=== PATIENT | male | born 1930 | race Caucasian/White ===

== ENCOUNTER 2019-04-05 04:28 | Inpatient (IN) | payer MEDICARE, OTHER ==
[2019-04-05 04:46] VITALS: BMI 29.0
--- NOTE | 2019-04-05 05:24 | ED PDOC ---
Arrival/HPI - General Chief Complaint: GI Problem Time Seen by Provider: 04/05/19 04:30 Historian: Patient - History of Present Illness Narrative History of Present Illness (Text): 04/05/19 05:00 Gaston Boss is an 88 year old male, whose past medical history includes hypertension, CAD, CT, and diabetes, who presents to the ED complaining of hematochezia. Patient states he has been experiencing blood in his stools and notes he had a similar issues while in [place]. Patient was advised to stop his Aspirin and Plavix at that time, but started them again and symptoms returned. Patient had a colonoscopy while in [place] and had 1 polyp removed. Patient denies any fever, chills, chest pain, shortness of breath, nausea, vomiting, urinary symptoms, back pain, neck pain, headache, dizziness, or any other complaints. Symptom Onset: Gradual Symptom Course: Unchanged Activities at Onset: Light Context: Home Past Medical History - Provider Review Nursing Documentation Reviewed: Yes - Infectious Disease Hx of Infectious Diseases: None - Tetanus Immunization Tetanus Immunization: Unknown, OTH - Cardiac Hx CT: Yes Hx Hypertension: Yes - Neurological HX Cerebrovascular Accident: Yes (10 yrs ago) - Endocrine/Metabolic Hx Diabetes Mellitus Type 2: Yes - Gastrointestinal Other/Comment: polyps found on colonoscopy - Psychiatric Hx Depression: No Hx Emotional Abuse: No Hx Physical Abuse: No Hx Substance Use: No - Past Surgical History Past Surgical History: No Previous - Surgical History Other/Comment: stent - Anesthesia Hx Anesthesia: Yes Hx Anesthesia Reactions: No Hx Malignant Hyperthermia: No - Suicidal Assessment Feels Threatened In Home Enviroment: No Family/Social History - Physician Review Nursing Documentation Reviewed: Yes Family/Social History: Unknown Family HX Smoking Status: Never Smoked Hx Alcohol Use: No Hx Substance Use: No Hx Substance Use Treatment: No Allergies/Home Meds Allergies/Adverse Reactions: Allergies No Known Allergies Allergy (Verified 02/21/13 04:52) Home Medications: Home Meds Medication Instructions Recorded Confirmed Aspirin [Ecotrin] 81 mg PO DAILY 04/05/19 04/05/19 Atorvastatin [Lipitor] 40 mg PO HS 04/05/19 04/05/19 Clopidogrel [Plavix] 1 tab PO DAILY 04/05/19 04/05/19 Isosorbide Mononitrate [Isosorbide 30 mg PO DAILY 04/05/19 04/05/19 Mononitrate ER] Lisinopril [Zestril] 20 mg PO DAILY 04/05/19 04/05/19 Metformin HCl [Glucophage] 500 mg PO BID 04/05/19 04/05/19 Review of Systems - Physician Review All systems were reviewed & negative as marked: Yes - Review of Systems Constitutional: Normal. absent: Fevers Eyes: Normal ENT: Normal Respiratory: Normal. absent: SOB, Cough Cardiovascular: Normal. absent: Chest Pain Gastrointestinal: Hematochezia. absent: Abdominal Pain, Diarrhea, Nausea, Vomiting Genitourinary Male: Normal. absent: Frequency, Hematuria, Urinary Output Changes Musculoskeletal: Normal Skin: Normal Neurological: Normal Endocrine: Normal Hemo/Lymphatic: Normal Psychiatric: Normal Physical Exam Vital Signs Reviewed: Yes Vital Signs Temp Pulse Resp BP Pulse Ox 04/05/19 04:45 97.4 F L 86 18 134/94 H 100 Temperature: Afebrile Blood Pressure: Normal Pulse: Regular Respiratory Rate: Normal Appearance: Positive for: Well-Appearing, Non-Toxic, Comfortable Pain Distress: None Mental Status: Positive for: Alert and Oriented X 3 - Systems Exam Head: Present: Atraumatic, Normocephalic Pupils: Present: PERRL Extroacular Muscles: Present: EOMI Conjunctiva: Present: Normal Mouth: Present: Moist Mucous Membranes Neck: Present: Normal Range of Motion Respiratory/Chest: Present: Clear to Auscultation, Good Air Exchange. No: Respiratory Distress, Accessory Muscle Use Cardiovascular: Present: Regular Rate and Rhythm, Normal S1, S2. No: Murmurs Abdomen: No: Tenderness, Distention, Peritoneal Signs Back: Present: Normal Inspection Upper Extremity: Present: Normal Inspection. No: Cyanosis, Edema Lower Extremity: Present: Normal Inspection. No: Edema Neurological: Present: GCS=15, CN II-XII Intact, Speech Normal Skin: Present: Warm, Dry, Normal Color. No: Rashes Psychiatric: Present: Alert, Oriented x 3, Normal Insight, Normal Concentration Medical Decision Making ED Course and Treatment: 04/05/19 05:00 Impression: 88 year old male complaining blood in stool. Plan: -- EKG -- Chest X-ray -- Labs, blood type and screen, amylase, lipase, cardiac enzymes -- Reassess and disposition Prior Visits: Notes and results from previous visits were reviewed. Progress Notes: Reviewed EKG, NSR at [address] bpm[address] Non-specific ST/T wave changes. 04/05/19 05:38 Case discussed with medical assisting instructor reservoir engineering consultant, who is aware and agrees with plan. 04/05/19 05:[address] Dash, who is aware and agrees with plan. Accepts pt in to hospitalist service. Pt admitted to Telemetry for lower GI bleed. case d/w dr forte will get bleeding scan - Lab Interpretations I have reviewed the lab results: Yes - RAD Interpretation Radiology Orders: 04/05/19 05:09 CHEST PORTABLE [RAD] Stat - EKG Interpretation Interpreted by ED Physician: Yes Type: 12 lead EKG - Scribe Statement The provider has reviewed the documentation as recorded by the Latha Salgado Provider Scribe Attestation: All medical record entries made by the Scribe were at my direction and personally dictated by me. I have reviewed the chart and agree that the record accurately reflects my personal performance of the history, physical exam, medical decision making, and the department course for this patient. I have also personally directed, reviewed, and agree with the discharge instructions and disposition. Disposition/Present on Arrival - Present on Arrival Any Indicators Present on Arrival: No History of DVT/PE: No History of Uncontrolled Diabetes: No Urinary Catheter: No History of Decub. Ulcer: No History Surgical Site Infection Following: None - Disposition Have Diagnosis and Disposition been Completed?: Yes Diagnosis: Lower gastrointestinal hemorrhage Disposition: HOSPITALIZED Disposition Time: 06:00 Condition: FAIR
[2019-04-05 05:25] LABS: BASO # 0.04 K/mm3 (0.0-2.0); BASO % 0.4 % (0.0-3.0); EOS # 0.4 (0.0-0.7); EOS % 3.6 % (1.5-5.0); HEMOGLOBIN 9.2 g/dL (14.0-18.0); LYMPH # 2.5 (1.2-3.4); LYMPH % 25.1 % (22.0-35.0); MEAN CELL VOLUME 80.1 fl (80.0-105.0); MEAN CORPUSCULAR HEMOGLOBIN 24.5 pg (25.0-35.0); MEAN CORPUSCULAR HGB CONC 30.6 g/dl (31.0-37.0); MEAN PLATELET VOLUME 8.7 fl (7.0-11.0); MONO # 0.8 (0.1-0.6); MONO % 8.1 % (1.0-6.0); RBC 3.76 10^6/uL (3.5-6.1); RED CELL DISTRIBUTION WIDTH 13.2 % (11.5-14.5)
[2019-04-05 05:33] LABS: INR 0.96; PARTIAL THROMBOPLASTIN TIME 36.6 Seconds (26.9-38.3); PROTHROMBIN TIME 10.8 SECONDS (9.4-12.5)
[2019-04-05 05:47] LABS: ALB/GLOB RATIO 1.3 (1.1-1.8); ALBUMIN 4.4 g/dL (3.0-4.8); ALT/SGPT 17 U/L (7-56); AMYLASE 137 U/L (35-125); AST/SGOT 24 U/L (17-59); BLOOD UREA NITROGEN 22 mg/dL (7-21); CALCIUM 9.1 mg/dL (8.4-10.5); GFR NON-AFRICAN AMERICAN 41; LIPASE 408 U/L (23-300)
[2019-04-05 05:52] LABS: TROPONIN I < 0.01 ng/mL
[2019-04-05] MEDS ORDERED: Dextrose 50% SYRINGE Inj (50 ml) IV PRN (07:53)
--- NOTE | 2019-04-05 08:34 | RAD ---
Date of service: 04/05/2019 HISTORY: gi bleed COMPARISON: No prior. TECHNIQUE: 1 view obtained. FINDINGS: LUNGS: No active pulmonary disease. PLEURA: No significant pleural effusion identified, no pneumothorax apparent. CARDIOVASCULAR: Aortic calcification Normal cardiac size. No pulmonary vascular congestion. OSSEOUS STRUCTURES: No significant abnormalities. VISUALIZED UPPER ABDOMEN: Normal. OTHER FINDINGS: None. IMPRESSION: No active disease.
[2019-04-05] MEDS: Sodium Chloride 0.9% 1,000 ML IV SCH ×2 (08:43→22:00)
--- NOTE | 2019-04-05 09:08 | CARD ---
APPROVED REPORT Date of service: 04/05/2019 EKG Measurement Heart [id number] <Conclusion> Normal sinus rhythm Cannot rule out Anteroseptal infarct, age undetermined Abnormal ECG
[2019-04-05] MEDS: Insulin Lispro (humaLOG) LOW Coverage SC SCH ×3 (11:30→21:56)
[2019-04-05 11:42] LABS: HEMOGLOBIN 8.2 g/dL (14.0-18.0); MEAN CELL VOLUME 78.5 fl (80.0-105.0); MEAN CORPUSCULAR HEMOGLOBIN 24.8 pg (25.0-35.0); MEAN CORPUSCULAR HGB CONC 31.5 g/dl (31.0-37.0); MEAN PLATELET VOLUME 8.8 fl (7.0-11.0); RBC 3.31 10^6/uL (3.5-6.1); RED CELL DISTRIBUTION WIDTH 13.1 % (11.5-14.5); WHITE BLOOD COUNT 8.6 10^3/uL (4.5-11.0)
--- NOTE | 2019-04-05 11:50 | CP.PCM.CON ---
<JoseJesus - Last Filed: 04/05/19 17:22> History of Present Illness - History of Present Illness History of Present Illness: Jesus Garcia-Internal Medicine Resident- Consult Note on Behalf of Dr. Luu Subjective: CC: Blood in Stool HPI: Patient is a 88 year old male with a past medical history of colonic polyp, GI bleed, [place], CAD s/p stent placement, hypertension, hyperlipidemia, and diabetes who was admitted for evaluation and treatment of cynthia blood in the stool. GI team was consulted for management/recommendations regarding the aforementioned symptom. Patient seen and examined at bedside. States that he experienced cynthia bright red blood per rectum 3 weeks ago while visiting his daughter in [place]. At that time he was evaluated in an inpatient setting and underwent a colonoscopy which the patient endorses revealed one polyp which he is unsure if removed/biopsied. He was advised to stop taking home aspirin/plavix for 10 days. Patient restarted those medications approximately 2 weeks ago. He experienced bright red blood per rectum this morning. Since being at the hospital he has experienced an additional five bouts of bloody BM. Denies ass ociated abdominal pain, nausea, vomiting, constipation. Further denies fever, chills, dizziness, headache, chest pain, SOB, and urinary symptoms. 12 point ROS negative except as indicated in the HPI Past medical history: colonic polyp, GI bleed, [place], CAD s/p stent placement, hypertension, hyperlipidemia, and diabetes Past surgical history: denies Allergies: NKDA Family history: Father- CAD, [place] Social History: denies ETOH use, tobacco use, and illicit drug use Physical Examination: - Constitutional Appears: No Acute Distress - Head Exam Head Exam: ATRAUMATIC, NORMAL INSPECTION, NORMOCEPHALIC - Eye Exam Eye Exam: EOMI, Normal appearance - ENT Exam ENT Exam: Mucous Membranes Moist - Respiratory Exam Respiratory Exam: CTA bilaterally, absent: Accessory Muscle Use, Chest Wall Tenderness, Rales, Rhonchi, Wheezes, Respiratory Distress - Cardiovascular Exam Cardiovascular Exam: RRR, +S1, +S2 - GI/Abdominal Exam GI & Abdominal Exam: Normal Bowel Sounds, Soft, Tenderness to palpation, absent: Distended, Firm, Guarding, Organomegaly, Rebound, Rigid - Rectal Exam Rectal Exam: Cynthia blood in BM, no fissures, no external hemorrhoids - Extremities Exam Extremities exam: Positive for: normal inspection, Negative for: calf tenderness - Back Exam Back exam: No CVA tenderness bilaterally - Neurological Exam Neurological exam: Alert, Oriented x3 - Psychiatric Exam Psychiatric exam: Normal Affect, Normal Mood - Skin Skin Exam: Dry, Intact, Normal Color, Warm Assessment and Plan: Patient is a 88 year old male with a past medical history of colonic polyp, GI bleed, [place], CAD s/p stent placement, hypertension, hyperlipidemia, and diabetes who was admitted for evaluation and treatment of cynthia blood in the stool. GI hemorrhage- likely diverticular bleed Suspected MARGARET on CKD- need baseline creatinine/BUN Hx of [place] Hx of CAD s/p stent placement Hx of hypertension Hx of hyperlipidemia Hx of diabetes - NPO - protonix 40mg IV q12 - CBC q6h- trend hemoglobin - 2 large bore peripheral IVs - transfuse pRBCs if Hgb<8 - transfuse 1 unit of platelets - attain records from previous colonoscopy for review - nuclear bleeding scan ordered- Abnormal accumulation is seen near the midline of the mid abdomen with peristalsis distally. The bleed is most likely in the descending or sigmoid colon. - hold antiplatelet medications at this time - recommend general surgery consult - icu team consulted- appreciate recommendations Patient seen, case discussed with, and plan approved by attending physician, Dr. Luu. Past Patient History - Infectious Disease Hx of Infectious Diseases: None - Tetanus Immunizations Tetanus Immunization: Unknown, OTH - Past Social History Smoking Status: Never Smoked - CARDIAC Hx Heart Attack: Yes Hx Hypertension: Yes - NEUROLOGICAL HX Cerebrovascular Accident: Yes (10 yrs ago) - ENDOCRINE/METABOLIC Hx Diabetes Mellitus Type 2: Yes - GASTROINTESTINAL Other/Comment: polyps found on colonoscopy - PSYCHIATRIC Hx Depression: No Hx Emotional Abuse: No Hx Physical Abuse: No Hx Substance Use: No - SURGICAL HISTORY Other/Comment: stent - ANESTHESIA Hx Anesthesia: Yes Hx Anesthesia Reactions: No Hx Malignant Hyperthermia: No Meds Allergies/Adverse Reactions: Allergies Allergy/AdvReac Type Severity Reaction Status Date / Time No Known Allergies Allergy Verified 02/21/13 04:52 - Medications Medications: Current Medications Dextrose (Dextrose 50% Inj) 0 ml IV STAT PRN; Protocol PRN Reason: Hypoglycemia Protocol Dextrose (Dextrose 5% In Water 1000 Ml) 1,000 mls @ 0 mls/hr IV .Q0M PRN; Protocol PRN Reason: Hypoglycemia Protocol Sodium Chloride (Sodium Chloride 0.9%) 1,000 mls @ 100 mls/hr IV .Q10H EDNA Last Admin: 04/05/19 08:43 Dose: 100 mls/hr Insulin Human Lispro (Humalog Low) 0 units SC ACHS EDNA; Protocol Pantoprazole Sodium (Protonix Inj) 40 mg IVP DAILY EDNA Results - Vital Signs Recent Vital Signs: Last Vital Signs Temp 97.4 F L 04/05/19 04:45 Pulse 84 04/05/19 07:53 Resp 16 04/05/19 07:53 BP 125/71 04/05/19 07:53 Pulse Ox 98 04/05/19 07:53 - Labs Result Diagrams: 04/05/19 16:00 04/05/19 05:01 Labs: Laboratory Results - last 24 hr 04/05/19 04/05/19 04/05/19 05:01 05:01 05:01 WBC 10.0 RBC 3.76 Hgb 9.2 L Hct 30.1 L MCV 80.1 MCH 24.5 L MCHC 30.6 L RDW 13.2 Plt Count 278 MPV 8.7 Neut % (Auto) 62.8 Lymph % (Auto) 25.1 Sully % (Auto) 8.1 H Eos % (Auto) 3.6 Baso % (Auto) 0.4 Lymph # (Auto) 2.5 Sully # (Auto) 0.8 H Eos # (Auto) 0.4 Baso # (Auto) 0.04 Absolute Neuts (auto) 6.27 PT 10.8 INR 0.96 APTT 36.6 Sodium 128 L Potassium 4.4 Chloride 94 L Carbon Dioxide 20 L Anion Gap 18 BUN 22 H Creatinine 1.6 H Est GFR ( Amer) 50 Est GFR (Non-Af Amer) 41 POC Glucose (mg/dL) Random Glucose 111 H Calcium 9.1 Total Bilirubin 0.5 AST 24 ALT 17 Alkaline Phosphatase 86 Lactate Dehydrogenase 323 L Total Creatine Kinase 134 Troponin I < 0.01 Total Protein 7.7 Albumin 4.4 Globulin 3.4 Albumin/Globulin Ratio 1.3 Amylase 137 H Lipase 408 H Blood Type Blood Type Confirm Antibody Screen Crossmatch BBK History Checked 04/05/19 04/05/19 04/05/19 05:01 05:30 06:12 WBC RBC Hgb Hct MCV MCH MCHC RDW Plt Count MPV Neut % (Auto) Lymph % (Auto) Sully % (Auto) Eos % (Auto) Baso % (Auto) Lymph # (Auto) Sully # (Auto) Eos # (Auto) Baso # (Auto) Absolute Neuts (auto) PT INR APTT Sodium Potassium Chloride Carbon Dioxide Anion Gap BUN Creatinine Est GFR ( Amer) Est GFR (Non-Af Amer) POC Glucose (mg/dL) 137 H Random Glucose Calcium Total Bilirubin AST ALT Alkaline Phosphatase Lactate Dehydrogenase Total Creatine Kinase Troponin I Total Protein Albumin Globulin Albumin/Globulin Ratio Amylase Lipase Blood Type B POSITIVE Blood Type Confirm B POSITIVE Antibody Screen Negative Crossmatch See Detail BBK History Checked No verified bt 04/05/19 11:09 WBC RBC Hgb Hct MCV MCH MCHC RDW Plt Count MPV Neut % (Auto) Lymph % (Auto) Sully % (Auto) Eos % (Auto) Baso % (Auto) Lymph # (Auto) Sully # (Auto) Eos # (Auto) Baso # (Auto) Absolute Neuts (auto) PT INR APTT Sodium Potassium Chloride Carbon Dioxide Anion Gap BUN Creatinine Est GFR ( Amer) Est GFR (Non-Af Amer) POC Glucose (mg/dL) 145 H Random Glucose Calcium Total Bilirubin AST ALT Alkaline Phosphatase Lactate Dehydrogenase Total Creatine Kinase Troponin I Total Protein Albumin Globulin Albumin/Globulin Ratio Amylase Lipase Blood Type Blood Type Confirm Antibody Screen Crossmatch BBK History Checked <Mary Ann Luu V - Last Filed: 04/05/19 17:35> Meds - Medications Medications: Current Medications Atorvastatin Calcium (Lipitor) 40 mg PO HS EDNA Dextrose (Dextrose 50% Inj) 0 ml IV STAT PRN; Protocol PRN Reason: Hypoglycemia Protocol Dextrose (Dextrose 5% In Water 1000 Ml) 1,000 mls @ 0 mls/hr IV .Q0M PRN; Protocol PRN Reason: Hypoglycemia Protocol Sodium Chloride (Sodium Chloride 0.9%) 1,000 mls @ 100 mls/hr IV .Q10H EDNA Last Admin: 04/05/19 08:43 Dose: 100 mls/hr Insulin Human Lispro (Humalog Low) 0 units SC ACHS [facility]; Protocol Last Admin: 04/05/19 16:34 Dose: Not Given Pantoprazole Sodium (Protonix Inj) 40 mg IVP DAILY [facility] Results - Vital Signs Recent Vital Signs: Last Vital Signs Temp 98.6 F 04/05/19 16:39 Pulse 68 04/05/19 16:39 Resp 19 04/05/19 16:39 BP 103/66 04/05/19 16:39 Pulse Ox 98 04/05/19 07:53 - Labs Result Diagrams: 04/05/19 16:00 04/05/19 05:01 Labs: Laboratory Results - last 24 hr 04/05/19 04/05/19 04/05/19 05:01 05:01 05:01 WBC 10.0 RBC 3.76 Hgb 9.2 L Hct 30.1 L MCV 80.1 MCH 24.5 L MCHC 30.6 L RDW 13.2 Plt Count 278 MPV 8.7 Neut % (Auto) 62.8 Lymph % (Auto) 25.1 Sully % (Auto) 8.1 H Eos % (Auto) 3.6 Baso % (Auto) 0.4 Lymph # (Auto) 2.5 Sully # (Auto) 0.8 H Eos # (Auto) 0.4 Baso # (Auto) 0.04 Absolute Neuts (auto) 6.27 PT 10.8 INR 0.96 APTT 36.6 Sodium 128 L Potassium 4.4 Chloride 94 L Carbon Dioxide 20 L Anion Gap 18 BUN 22 H Creatinine 1.6 H Est GFR ( Amer) 50 Est GFR (Non-Af Amer) 41 POC Glucose (mg/dL) Random Glucose 111 H Serum Osmolality Calcium 9.1 Total Bilirubin 0.5 AST 24 ALT 17 Alkaline Phosphatase 86 Lactate Dehydrogenase 323 L Total Creatine Kinase 134 Troponin I < 0.01 Total Protein 7.7 Albumin 4.4 Globulin 3.4 Albumin/Globulin Ratio 1.3 Amylase 137 H Lipase 408 H TSH 3rd Generation Blood Type Blood Type Confirm Antibody Screen Crossmatch BBK History Checked 04/05/19 04/05/19 04/05/19 05:01 05:30 06:12 WBC RBC Hgb Hct MCV MCH MCHC RDW Plt Count MPV Neut % (Auto) Lymph % (Auto) Sully % (Auto) Eos % (Auto) Baso % (Auto) Lymph # (Auto) Sully # (Auto) Eos # (Auto) Baso # (Auto) Absolute Neuts (auto) PT INR APTT Sodium Potassium Chloride Carbon Dioxide Anion Gap BUN Creatinine Est GFR ( Amer) Est GFR (Non-Af Amer) POC Glucose (mg/dL) 137 H Random Glucose Serum Osmolality Calcium Total Bilirubin AST ALT Alkaline Phosphatase Lactate Dehydrogenase Total Creatine Kinase Troponin I Total Protein Albumin Globulin Albumin/Globulin Ratio Amylase Lipase TSH 3rd Generation Blood Type B POSITIVE Blood Type Confirm B POSITIVE Antibody Screen Negative Crossmatch See Detail BBK History Checked No verified bt 04/05/19 04/05/19 04/05/19 11:09 11:35 11:35 WBC 8.6 RBC 3.31 L Hgb 8.2 L Hct 26.0 L MCV 78.5 L MCH 24.8 L MCHC 31.5 RDW 13.1 Plt Count 237 MPV 8.8 Neut % (Auto) Lymph % (Auto) Sully % (Auto) Eos % (Auto) Baso % (Auto) Lymph # (Auto) Sully # (Auto) Eos # (Auto) Baso # (Auto) Absolute Neuts (auto) PT INR APTT Sodium Potassium Chloride Carbon Dioxide Anion Gap BUN Creatinine Est GFR ( Amer) Est GFR (Non-Af Amer) POC Glucose (mg/dL) 145 H Random Glucose Serum Osmolality Calcium Total Bilirubin AST ALT Alkaline Phosphatase Lactate Dehydrogenase Total Creatine Kinase Troponin I Total Protein Albumin Globulin Albumin/Globulin Ratio Amylase Lipase TSH 3rd Generation 1.52 Blood Type Blood Type Confirm Antibody Screen Crossmatch BBK History Checked 04/05/19 04/05/19 04/05/19 11:35 13:05 16:00 WBC 9.1 RBC 3.39 L Hgb 8.4 L Hct 26.6 L MCV 78.5 L MCH 24.8 L MCHC 31.6 RDW 13.5 Plt Count 202 MPV 8.5 Neut % (Auto) Lymph % (Auto) Sully % (Auto) Eos % (Auto) Baso % (Auto) Lymph # (Auto) Sully # (Auto) Eos # (Auto) Baso # (Auto) Absolute Neuts (auto) PT INR APTT Sodium Potassium Chloride Carbon Dioxide Anion Gap BUN Creatinine Est GFR ( Amer) Est GFR (Non-Af Amer) POC Glucose (mg/dL) Random Glucose Serum Osmolality 267 L Calcium Total Bilirubin AST ALT Alkaline Phosphatase Lactate Dehydrogenase Total Creatine Kinase Troponin I < 0.01 Total Protein Albumin Globulin Albumin/Globulin Ratio Amylase Lipase TSH 3rd Generation Blood Type Blood Type Confirm Antibody Screen Crossmatch BBK History Checked Attending/Attestation - Attestation I have personally seen and examined this patient.: Yes I have fully participated in the care of the patient.: Yes I have reviewed all pertinent clinical information: Yes Notes (Text): This is a addendum to the consultation report dictated by the resident. The patient was seen and evaluated along with the resident earlier. Discussed with the patient's family who were at bedside. Patient did have a colonoscopy done in [place] which was reviewed only part of the report available discharge summary was available which was reviewed. Patient was hospitalized at that time with the GI bleeding. Patient did have multiple polyps and diverticulosis. Patient was on aspirin and Plavix at that time. No intervention was done. Managed conservatively. Patient was recommended to restart the antiplatelet therapy after 10 days. Now the patient is admitted with the another episode of GI bleeding. The bleeding scan was reviewed. Patient hemoglobin has been closely monitored received 1 unit of platelet blood transfusion. Since the patient has active bleeding is reasonable to transfuse platelets in view of the dysfunctional platelets due to Plavix. We will continue to closely monitor the hemoglobin hematocrit. Requested also surgical evaluation and ICU evaluation in view of this multiple comorbidities and active bleeding in this 88-year-old patient is a reasonable monitor in the intensive care unit. Discussed with the hospitalist team 04/05/19 17:32
--- NOTE | 2019-04-05 12:19 | CP.PCM.HP ---
<Dave Harrison - Last Filed: 04/05/19 16:32> History of Present Illness - History of Present Illness History of Present Illness: History and Physical for Hospitalist Service - Ana M Harrison PGY2 CC: Bloody bowel movement HPI: 88 year old male with past medical history of HTN, CAD s/p stent, DM2 and HLD who presented to [facility] ED for single episode of bloody diarrhea. Patient indicates that early this AM he had one episode of bright red blood per rectum. Patient indicates that 5/3 he was in [place] visiting family when he had an episode of blood bm which required hospital admission for 3 days. There he had a colonoscopy for which showed polyps. Himself and his family at bedside are unable to provide further details. They indicate the hospital discharged him home after colonoscopy and told him to hold his ASA and plavix for ten days. Patient reports he restarted the ASA, Plavix. Patient indicates the patient has BRPR with some melena, denies black tarry stool, abdominal discomfort, blood thinners. Denies nausea, vomiting, fever, chills, chest pain, shortness of breath. While in ED patient had at least 4 bloody bowel movements with presence of some clotting. PMHx: colon polyp, HTN, CAD s/p angioplasty and possible stents, [place], Type 2 DM, hyperlipidemia PSHx: denies ALL: NKDA SOChx: Denies tobacco, etoh, ID FamHx: no history of cancer Meds: Aspirin 81mg PO daily, Plavix 75mg PO daily, Lisinopril 20 mg daily, Isosorbide mononitrite 30 PO daily, metformin 500mg PO BID, Lipitor 40 mg PO HS PMD:Miguel Angel Chambers Present on Admission - Present on Admission Any Indicators Present on Admission: No Review of Systems - Review of Systems All systems: reviewed and no additional remarkable complaints except (as mentioned in HPI) Past Patient History - Infectious Disease Hx of Infectious Diseases: None - Tetanus Immunizations Tetanus Immunization: Unknown, OTH - Past Social History Smoking Status: Never Smoked - CARDIAC Hx Heart Attack: Yes Hx Hypertension: Yes - NEUROLOGICAL HX Cerebrovascular Accident: Yes (10 yrs ago) - ENDOCRINE/METABOLIC Hx Diabetes Mellitus Type 2: Yes - GASTROINTESTINAL Other/Comment: polyps found on colonoscopy - PSYCHIATRIC Hx Depression: No Hx Emotional Abuse: No Hx Physical Abuse: No Hx Substance Use: No - SURGICAL HISTORY Other/Comment: stent - ANESTHESIA Hx Anesthesia: Yes Hx Anesthesia Reactions: No Hx Malignant Hyperthermia: No Meds Allergies/Adverse Reactions: Allergies Allergy/AdvReac Type Severity Reaction Status Date / Time No Known Allergies Allergy Verified 02/21/13 04:52 Physical Exam - Constitutional Appears: Non-toxic, No Acute Distress - Head Exam Head Exam: ATRAUMATIC, NORMAL INSPECTION, NORMOCEPHALIC - Eye Exam Eye Exam: EOMI, PERRL - ENT Exam ENT Exam: Mucous Membranes Moist - Neck Exam Neck exam: Positive for: Full Rom - Respiratory Exam Respiratory Exam: Clear to Auscultation Bilateral, NORMAL BREATHING PATTERN. absent: Rales, Rhonchi, Wheezes - Cardiovascular Exam Cardiovascular Exam: REGULAR RHYTHM, +S1, +S2 - GI/Abdominal Exam GI & Abdominal Exam: Hyperactive Bowel Sounds, Soft. absent: Distended, Firm, Guarding, Organomegaly, Pulsatile Mass, Rebound, Tenderness - Rectal Exam Rectal Exam: Bloody Stool. absent: Hemorrhoids, Fecal Impaction - Extremities Exam Extremities exam: Positive for: normal inspection. Negative for: calf tenderness, pedal edema, tenderness - Neurological Exam Neurological exam: Alert, CN II-XII Intact, Oriented x3, Reflexes Normal Additional comments: motor and sensory grossly intact - Psychiatric Exam Psychiatric exam: Normal Affect, Normal Mood - Skin Skin Exam: Dry, Intact Results - Vital Signs Recent Vital Signs: Last Vital Signs Temp 97.4 F L 04/05/19 04:45 Pulse 84 04/05/19 07:53 Resp 16 04/05/19 07:53 BP 125/71 04/05/19 07:53 Pulse Ox 98 04/05/19 07:53 - Labs Result Diagrams: 04/05/19 16:00 04/05/19 05:01 Labs: Laboratory Results - last 24 hr 04/05/19 04/05/19 04/05/19 05:01 05:01 05:01 WBC 10.0 RBC 3.76 Hgb 9.2 L Hct 30.1 L MCV 80.1 MCH 24.5 L MCHC 30.6 L RDW 13.2 Plt Count 278 MPV 8.7 Neut % (Auto) 62.8 Lymph % (Auto) 25.1 Gaston % (Auto) 8.1 H Eos % (Auto) 3.6 Baso % (Auto) 0.4 Lymph # (Auto) 2.5 Gaston # (Auto) 0.8 H Eos # (Auto) 0.4 Baso # (Auto) 0.04 Absolute Neuts (auto) 6.27 PT 10.8 INR 0.96 APTT 36.6 Sodium 128 L Potassium 4.4 Chloride 94 L Carbon Dioxide 20 L Anion Gap 18 BUN 22 H Creatinine 1.6 H Est GFR ( Amer) 50 Est GFR (Non-Af Amer) 41 POC Glucose (mg/dL) Random Glucose 111 H Calcium 9.1 Total Bilirubin 0.5 AST 24 ALT 17 Alkaline Phosphatase 86 Lactate Dehydrogenase 323 L Total Creatine Kinase 134 Troponin I < 0.01 Total Protein 7.7 Albumin 4.4 Globulin 3.4 Albumin/Globulin Ratio 1.3 Amylase 137 H Lipase 408 H Blood Type Blood Type Confirm Antibody Screen Crossmatch BBK History Checked 04/05/19 04/05/19 04/05/19 05:01 05:30 06:12 WBC RBC Hgb Hct MCV MCH MCHC RDW Plt Count MPV Neut % (Auto) Lymph % (Auto) Gaston % (Auto) Eos % (Auto) Baso % (Auto) Lymph # (Auto) Gaston # (Auto) Eos # (Auto) Baso # (Auto) Absolute Neuts (auto) PT INR APTT Sodium Potassium Chloride Carbon Dioxide Anion Gap BUN Creatinine Est GFR ( Amer) Est GFR (Non-Af Amer) POC Glucose (mg/dL) 137 H Random Glucose Calcium Total Bilirubin AST ALT Alkaline Phosphatase Lactate Dehydrogenase Total Creatine Kinase Troponin I Total Protein Albumin Globulin Albumin/Globulin Ratio Amylase Lipase Blood Type B POSITIVE Blood Type Confirm B POSITIVE Antibody Screen Negative Crossmatch See Detail BBK History Checked No verified bt 04/05/19 04/05/19 11:09 11:35 WBC 8.6 RBC 3.31 L Hgb 8.2 L Hct 26.0 L MCV 78.5 L MCH 24.8 L MCHC 31.5 RDW 13.1 Plt Count 237 MPV 8.8 Neut % (Auto) Lymph % (Auto) Gaston % (Auto) Eos % (Auto) Baso % (Auto) Lymph # (Auto) Gaston # (Auto) Eos # (Auto) Baso # (Auto) Absolute Neuts (auto) PT INR APTT Sodium Potassium Chloride Carbon Dioxide Anion Gap BUN Creatinine Est GFR ( Amer) Est GFR (Non-Af Amer) POC Glucose (mg/dL) 145 H Random Glucose Calcium Total Bilirubin AST ALT Alkaline Phosphatase Lactate Dehydrogenase Total Creatine Kinase Troponin I Total Protein Albumin Globulin Albumin/Globulin Ratio Amylase Lipase Blood Type Blood Type Confirm Antibody Screen Crossmatch BBK History Checked Assessment & Plan - Assessment and Plan (Free Text) Assessment: 86 year old male with past medical history of colon polyp, HTN, CAD s/p angioplasty with possible stents, [place], Type 2 DM, hyperlipidemia who presented to the ED with complaint of painless hematochezia. Patient noted to be hemodynamically stable and to be admitted to telemetry for monitoring and GI evaluation. Plan: Painless Hematochezia - Etiology: Diverticulosis vs. AVM vs. Polyp vs. 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 Weaver <Fitz Weaver - Last Filed: 04/05/19 17:39> Results - Vital Signs Recent Vital Signs: Last Vital Signs Temp 98.6 F 04/05/19 16:39 Pulse 68 04/05/19 16:39 Resp 19 04/05/19 16:39 BP 103/66 04/05/19 16:39 Pulse Ox 98 04/05/19 07:53 - Labs Result Diagrams: 04/05/19 16:00 04/05/19 05:01 Labs: Laboratory Results - last 24 hr 04/05/19 04/05/19 04/05/19 05:01 05:01 05:01 WBC 10.0 RBC 3.76 Hgb 9.2 L Hct 30.1 L MCV 80.1 MCH 24.5 L MCHC 30.6 L RDW 13.2 Plt Count 278 MPV 8.7 Neut % (Auto) 62.8 Lymph % (Auto) 25.1 Gaston % (Auto) 8.1 H Eos % (Auto) 3.6 Baso % (Auto) 0.4 Lymph # (Auto) 2.5 Gaston # (Auto) 0.8 H Eos # (Auto) 0.4 Baso # (Auto) 0.04 Absolute Neuts (auto) 6.27 PT 10.8 INR 0.96 APTT 36.6 Sodium 128 L Potassium 4.4 Chloride 94 L Carbon Dioxide 20 L Anion Gap 18 BUN 22 H Creatinine 1.6 H Est GFR ( Amer) 50 Est GFR (Non-Af Amer) 41 POC Glucose (mg/dL) Random Glucose 111 H Serum Osmolality Calcium 9.1 Total Bilirubin 0.5 AST 24 ALT 17 Alkaline Phosphatase 86 Lactate Dehydrogenase 323 L Total Creatine Kinase 134 Troponin I < 0.01 Total Protein 7.7 Albumin 4.4 Globulin 3.4 Albumin/Globulin Ratio 1.3 Amylase 137 H Lipase 408 H TSH 3rd Generation Blood Type Blood Type Confirm Antibody Screen Crossmatch BBK History Checked 04/05/19 04/05/19 04/05/19 05:01 05:30 06:12 WBC RBC Hgb Hct MCV MCH MCHC RDW Plt Count MPV Neut % (Auto) Lymph % (Auto) Gaston % (Auto) Eos % (Auto) Baso % (Auto) Lymph # (Auto) Gaston # (Auto) Eos # (Auto) Baso # (Auto) Absolute Neuts (auto) PT INR APTT Sodium Potassium Chloride Carbon Dioxide Anion Gap BUN Creatinine Est GFR ( Amer) Est GFR (Non-Af Amer) POC Glucose (mg/dL) 137 H Random Glucose Serum Osmolality Calcium Total Bilirubin AST ALT Alkaline Phosphatase Lactate Dehydrogenase Total Creatine Kinase Troponin I Total Protein Albumin Globulin Albumin/Globulin Ratio Amylase Lipase TSH 3rd Generation Blood Type B POSITIVE Blood Type Confirm B POSITIVE Antibody Screen Negative Crossmatch See Detail BBK History Checked No verified bt 04/05/19 04/05/19 04/05/19 11:09 11:35 11:35 WBC 8.6 RBC 3.31 L Hgb 8.2 L Hct 26.0 L MCV 78.5 L MCH 24.8 L MCHC 31.5 RDW 13.1 Plt Count 237 MPV 8.8 Neut % (Auto) Lymph % (Auto) Gaston % (Auto) Eos % (Auto) Baso % (Auto) Lymph # (Auto) Gaston # (Auto) Eos # (Auto) Baso # (Auto) Absolute Neuts (auto) PT INR APTT Sodium Potassium Chloride Carbon Dioxide Anion Gap BUN Creatinine Est GFR ( Amer) Est GFR (Non-Af Amer) POC Glucose (mg/dL) 145 H Random Glucose Serum Osmolality Calcium Total Bilirubin AST ALT Alkaline Phosphatase Lactate Dehydrogenase Total Creatine Kinase Troponin I Total Protein Albumin Globulin Albumin/Globulin Ratio Amylase Lipase TSH 3rd Generation 1.52 Blood Type Blood Type Confirm Antibody Screen Crossmatch BBK History Checked 04/05/19 04/05/19 04/05/19 11:35 13:05 16:00 WBC 9.1 RBC 3.39 L Hgb 8.4 L Hct 26.6 L MCV 78.5 L MCH 24.8 L MCHC 31.6 RDW 13.5 Plt Count 202 MPV 8.5 Neut % (Auto) Lymph % (Auto) Gaston % (Auto) Eos % (Auto) Baso % (Auto) Lymph # (Auto) Gaston # (Auto) Eos # (Auto) Baso # (Auto) Absolute Neuts (auto) PT INR APTT Sodium Potassium Chloride Carbon Dioxide Anion Gap BUN Creatinine Est GFR ( Amer) Est GFR (Non-Af Amer) POC Glucose (mg/dL) Random Glucose Serum Osmolality 267 L Calcium Total Bilirubin AST ALT Alkaline Phosphatase Lactate Dehydrogenase Total Creatine Kinase Troponin I < 0.01 Total Protein Albumin Globulin Albumin/Globulin Ratio Amylase Lipase TSH 3rd Generation Blood Type Blood Type Confirm Antibody Screen Crossmatch BBK History Checked Attending/Attestation - Attestation I have personally seen and examined this patient.: Yes I have fully participated in the care of the patient.: Yes I have reviewed all pertinent clinical information: Yes Notes (Text): 04/05/19 17:30 86 year old male with past medical history of CAD s/p possible stents on aspirin and plavix, hypertension, and diabetes who presents with complaint of hematochezia. He reports he had similar episode earlier this month and underwent colonoscopy which showed colon polyp. Will request for prior records from [place] including colonoscopy report. Continue with NPO, IVF, IV protonix. Continue with serial H/H monitoring; transfuse as needed. Bleeding scan was ordered which is positive for possible bleed in sigmoid or descending colon. Will request for ICU, surgery and GI evaluations. Aspirin and plavix are on hold. Agree with iv fluids for mild MARGARET and hyponatremia. Repeat BMP in AM. Fitz Weaver MD Hospitalist.
[2019-04-05] MEDS ORDERED: Pneumococcal 23-Valent Vaccine IM ONE (13:13)
--- NOTE | 2019-04-05 14:20 | NM ---
Date of service: 04/05/2019 PROCEDURE: Nuclear medicine gastrointestinal bleeding scan. HISTORY: lower gi bleed COMPARISON: None available. TECHNIQUE: 4ccof patient blood was withdrawn and mixed with 20.0mCi of technetium ultra tagged. Images of the abdomen and pelvis were obtained in the anterior projection at 1 min intervals over a period of 45 min. FINDINGS: Abnormal accumulation is seen near the midline of the mid abdomen with peristalsis distally. The bleed is most likely in the descending or sigmoid colon. Findings were discussed with the resident physician. Physiologic activity was seen in the heart, liver, spleen and blood vessels. IMPRESSION: Abnormal accumulation is seen near the midline of the mid abdomen with peristalsis distally. The bleed is most likely in the descending or sigmoid colon.
[2019-04-05 16:23] LABS: HEMOGLOBIN 8.4 g/dL (14.0-18.0); MEAN CELL VOLUME 78.5 fl (80.0-105.0); MEAN CORPUSCULAR HEMOGLOBIN 24.8 pg (25.0-35.0); MEAN CORPUSCULAR HGB CONC 31.6 g/dl (31.0-37.0); MEAN PLATELET VOLUME 8.5 fl (7.0-11.0); RBC 3.39 10^6/uL (3.5-6.1); RED CELL DISTRIBUTION WIDTH 13.5 % (11.5-14.5); WHITE BLOOD COUNT 9.1 10^3/uL (4.5-11.0)
--- NOTE | 2019-04-05 16:24 | CP.PCM.CON ---
History of Present Illness - History of Present Illness History of Present Illness: MICU CONSULT NOTE HPI Patient is 88yo male with PMHx of colonic polyp, GIB, CAD s/p stent, HTN, HLD, DM admitted to telemetry lower GIB, BRBPR. Pt receiving 1u PRBC, HH 8.2. Pt currently afebrile, HD stable, comfortable in NAD, although BP has been labile today. States that he experienced cynthia bright red blood per rectum 3 weeks ago while visiting his daughter in [place]. At that time he was evaluated in an inpatient setting and underwent a colonoscopy which the patient endorses revealed one polyp which he is unsure if removed/biopsied. He was advised to stop taking home aspirin/plavix for 10 days. Patient restarted those medications approximately 2 weeks ago. Denies fever, chills, cough, CP, palpitations, CHANDRA, dizziness. 12 point ROS negative except as indicated in the HPI Past medical history: colonic polyp, GI bleed, [place], CAD s/p stent placement, hypertension, hyperlipidemia, and diabetes Past surgical history: denies Allergies: NKDA Family history: Father- CAD, [place] Social History: denies ETOH use, tobacco use, and illicit drug use Review of Systems - Review of Systems Review of Systems: as per HPI Past Patient History - Infectious Disease Hx of Infectious Diseases: None - Tetanus Immunizations Tetanus Immunization: Unknown, OTH - Past Social History Smoking Status: Never Smoked - CARDIAC Hx Heart Attack: Yes Hx Hypertension: Yes - PULMONARY Hx Respiratory Disorders: No - NEUROLOGICAL HX Cerebrovascular Accident: Yes (10 yrs ago) - HEENT Hx HEENT Problems: Yes Hx Cataracts: Yes (left eye sx no cataract r eye) - RENAL Hx Chronic Kidney Disease: No - ENDOCRINE/METABOLIC Hx Diabetes Mellitus Type 2: Yes - HEMATOLOGICAL/ONCOLOGICAL Hx Blood Disorders: Yes Hx Anemia: Yes (H&H today 8.2 26.00/rcvg blood trans) - INTEGUMENTARY Hx Dermatological Problems: Yes Other/Comment: multiple skin discolorations ble and dry 1cm brown scab lle, thick toenails - MUSCULOSKELETAL/RHEUMATOLOGICAL Hx Falls: No - GASTROINTESTINAL Other/Comment: polyps found on colonoscopy - PSYCHIATRIC Hx Depression: No Hx Emotional Abuse: No Hx Physical Abuse: No Hx Substance Use: No - SURGICAL HISTORY Other/Comment: stent - ANESTHESIA Hx Anesthesia: Yes Hx Anesthesia Reactions: No Hx Malignant Hyperthermia: No Meds Allergies/Adverse Reactions: Allergies Allergy/AdvReac Type Severity Reaction Status Date / Time No Known Allergies Allergy Verified 02/21/13 04:52 - Medications Medications: Current Medications Dextrose (Dextrose 50% Inj) 0 ml IV STAT PRN; Protocol PRN Reason: Hypoglycemia Protocol Dextrose (Dextrose 5% In Water 1000 Ml) 1,000 mls @ 0 mls/hr IV .Q0M PRN; Protocol PRN Reason: Hypoglycemia Protocol Sodium Chloride (Sodium Chloride 0.9%) 1,000 mls @ 100 mls/hr IV .Q10H EDNA Last Admin: 04/05/19 08:43 Dose: 100 mls/hr Insulin Human Lispro (Humalog Low) 0 units SC ACHS EDNA; Protocol Last Admin: 04/05/19 11:30 Dose: Not Given Pantoprazole Sodium (Protonix Inj) 40 mg IVP DAILY EDNA Physical Exam - Constitutional Appears: Non-toxic, No Acute Distress - Head Exam Head Exam: NORMAL INSPECTION - Eye Exam Eye Exam: Normal appearance - ENT Exam ENT Exam: Mucous Membranes Moist - Neck Exam Neck exam: Positive for: Full Rom - Respiratory Exam Respiratory Exam: Clear to Auscultation Bilateral, NORMAL BREATHING PATTERN - Cardiovascular Exam Cardiovascular Exam: REGULAR RHYTHM, +S1, +S2 - GI/Abdominal Exam GI & Abdominal Exam: Normal Bowel Sounds, Soft - Extremities Exam Extremities exam: Positive for: normal inspection - Back Exam Back exam: NORMAL INSPECTION - Neurological Exam Neurological exam: Alert, Oriented x3 - Psychiatric Exam Psychiatric exam: Normal Affect - Skin Skin Exam: Normal Color, Warm Results - Vital Signs Recent Vital Signs: Last Vital Signs Temp 97.6 F 04/05/19 15:45 Pulse 66 04/05/19 15:45 Resp 18 04/05/19 15:45 BP 98/58 L 04/05/19 15:45 Pulse Ox 98 04/05/19 07:53 - Labs Result Diagrams: 04/05/19 11:35 04/05/19 05:01 Labs: Laboratory Results - last 24 hr 04/05/19 04/05/19 04/05/19 05:01 05:01 05:01 WBC 10.0 RBC 3.76 Hgb 9.2 L Hct 30.1 L MCV 80.1 MCH 24.5 L MCHC 30.6 L RDW 13.2 Plt Count 278 MPV 8.7 Neut % (Auto) 62.8 Lymph % (Auto) 25.1 Will % (Auto) 8.1 H Eos % (Auto) 3.6 Baso % (Auto) 0.4 Lymph # (Auto) 2.5 Will # (Auto) 0.8 H Eos # (Auto) 0.4 Baso # (Auto) 0.04 Absolute Neuts (auto) 6.27 PT 10.8 INR 0.96 APTT 36.6 Sodium 128 L Potassium 4.4 Chloride 94 L Carbon Dioxide 20 L Anion Gap 18 BUN 22 H Creatinine 1.6 H Est GFR ( Amer) 50 Est GFR (Non-Af Amer) 41 POC Glucose (mg/dL) Random Glucose 111 H Serum Osmolality Calcium 9.1 Total Bilirubin 0.5 AST 24 ALT 17 Alkaline Phosphatase 86 Lactate Dehydrogenase 323 L Total Creatine Kinase 134 Troponin I < 0.01 Total Protein 7.7 Albumin 4.4 Globulin 3.4 Albumin/Globulin Ratio 1.3 Amylase 137 H Lipase 408 H TSH 3rd Generation Blood Type Blood Type Confirm Antibody Screen Crossmatch BBK History Checked 04/05/19 04/05/19 04/05/19 05:01 05:30 06:12 WBC RBC Hgb Hct MCV MCH MCHC RDW Plt Count MPV Neut % (Auto) Lymph % (Auto) Will % (Auto) Eos % (Auto) Baso % (Auto) Lymph # (Auto) Will # (Auto) Eos # (Auto) Baso # (Auto) Absolute Neuts (auto) PT INR APTT Sodium Potassium Chloride Carbon Dioxide Anion Gap BUN Creatinine Est GFR ( Amer) Est GFR (Non-Af Amer) POC Glucose (mg/dL) 137 H Random Glucose Serum Osmolality Calcium Total Bilirubin AST ALT Alkaline Phosphatase Lactate Dehydrogenase Total Creatine Kinase Troponin I Total Protein Albumin Globulin Albumin/Globulin Ratio Amylase Lipase TSH 3rd Generation Blood Type B POSITIVE Blood Type Confirm B POSITIVE Antibody Screen Negative Crossmatch See Detail BBK History Checked No verified bt 04/05/19 04/05/19 04/05/19 11:09 11:35 11:35 WBC 8.6 RBC 3.31 L Hgb 8.2 L Hct 26.0 L MCV 78.5 L MCH 24.8 L MCHC 31.5 RDW 13.1 Plt Count 237 MPV 8.8 Neut % (Auto) Lymph % (Auto) Will % (Auto) Eos % (Auto) Baso % (Auto) Lymph # (Auto) Will # (Auto) Eos # (Auto) Baso # (Auto) Absolute Neuts (auto) PT INR APTT Sodium Potassium Chloride Carbon Dioxide Anion Gap BUN Creatinine Est GFR ( Amer) Est GFR (Non-Af Amer) POC Glucose (mg/dL) 145 H Random Glucose Serum Osmolality Calcium Total Bilirubin AST ALT Alkaline Phosphatase Lactate Dehydrogenase Total Creatine Kinase Troponin I Total Protein Albumin Globulin Albumin/Globulin Ratio Amylase Lipase TSH 3rd Generation 1.52 Blood Type Blood Type Confirm Antibody Screen Crossmatch BBK History Checked 04/05/19 04/05/19 11:35 13:05 WBC RBC Hgb Hct MCV MCH MCHC RDW Plt Count MPV Neut % (Auto) Lymph % (Auto) Will % (Auto) Eos % (Auto) Baso % (Auto) Lymph # (Auto) Will # (Auto) Eos # (Auto) Baso # (Auto) Absolute Neuts (auto) PT INR APTT Sodium Potassium Chloride Carbon Dioxide Anion Gap BUN Creatinine Est GFR ( Amer) Est GFR (Non-Af Amer) POC Glucose (mg/dL) Random Glucose Serum Osmolality 267 L Calcium Total Bilirubin AST ALT Alkaline Phosphatase Lactate Dehydrogenase Total Creatine Kinase Troponin I < 0.01 Total Protein Albumin Globulin Albumin/Globulin Ratio Amylase Lipase TSH 3rd Generation Blood Type Blood Type Confirm Antibody Screen Crossmatch BBK History Checked Assessment & Plan - Assessment and Plan (Free Text) Assessment: 88yo male with lower GIB Lower GIB CAD HTN Colonic Polyp Anemia Recommend: - supp o2 as needed, duonebs PRN - NO ID issues - would give 1u PRBC, 1u FFP, 1u PLatelets - maintain 2 large bore PIVs - NPO - IVF - GI follow up - Surgical consult - GI ppx, PPI - DVT ppx, SCDs - Transfer to MICU
--- NOTE | 2019-04-05 17:12 | CP.PCM.CON ---
History of Present Illness - History of Present Illness History of Present Illness: General Surgery Consult Re: Lower GI bleed HPI: 88M complaining of bloody diarrhea. The diarrhea began this morning at 3 AM with BRBPR and no associated pain. Since admission he has still been having hematochezia. He was in [place] several weeks ago and had similar symptoms. At that time he was hospitalized for 3 days and had a colonoscopy which his family said showed diverticulitis with polyps. He was told to hold his ASA and P lavix, and he reports that his symptoms stopped. He has never had this in the past. Denies fever, fatigue, headache, blurry vision, chest pain, palpitations, nausea, vomiting, constipation, melena, abdominal pain, rectal pain. 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 No EtOH or drug use All: NKDA Meds: See MAR, includes ASA and Plavix Review of Systems - Review of Systems All systems: reviewed and no additional remarkable complaints except (As per HPI) Past Patient History - Infectious Disease Hx of Infectious Diseases: None - Tetanus Immunizations Tetanus Immunization: Unknown, OTH - Past Social History Smoking Status: Never Smoked - CARDIAC Hx Heart Attack: Yes Hx Hypertension: Yes - PULMONARY Hx Respiratory Disorders: No - NEUROLOGICAL HX Cerebrovascular Accident: Yes (10 yrs ago) - HEENT Hx HEENT Problems: Yes Hx Cataracts: Yes (left eye sx no cataract r eye) - RENAL Hx Chronic Kidney Disease: No - ENDOCRINE/METABOLIC Hx Diabetes Mellitus Type 2: Yes - HEMATOLOGICAL/ONCOLOGICAL Hx Blood Disorders: Yes Hx Anemia: Yes (H&H today 8.2 26.00/rcvg blood trans) - INTEGUMENTARY Hx Dermatological Problems: Yes Other/Comment: multiple skin discolorations ble and dry 1cm brown scab lle, thick toenails - MUSCULOSKELETAL/RHEUMATOLOGICAL Hx Falls: No - GASTROINTESTINAL Other/Comment: polyps found on colonoscopy - PSYCHIATRIC Hx Depression: No Hx Emotional Abuse: No Hx Physical Abuse: No Hx Substance Use: No - SURGICAL HISTORY Other/Comment: stent - ANESTHESIA Hx Anesthesia: Yes Hx Anesthesia Reactions: No Hx Malignant Hyperthermia: No Meds Allergies/Adverse Reactions: Allergies Allergy/AdvReac Type Severity Reaction Status Date / Time No Known Allergies Allergy Verified 02/21/13 04:52 - Medications Medications: Current Medications Atorvastatin Calcium (Lipitor) 40 mg PO HS EDNA Dextrose (Dextrose 50% Inj) 0 ml IV STAT PRN; Protocol PRN Reason: Hypoglycemia Protocol Dextrose (Dextrose 5% In Water 1000 Ml) 1,000 mls @ 0 mls/hr IV .Q0M PRN; Protocol PRN Reason: Hypoglycemia Protocol Sodium Chloride (Sodium Chloride 0.9%) 1,000 mls @ 100 mls/hr IV .Q10H EDNA Last Admin: 04/05/19 08:43 Dose: 100 mls/hr Insulin Human Lispro (Humalog Low) 0 units SC ACHS EDNA; Protocol Last Admin: 04/05/19 16:34 Dose: Not Given Pantoprazole Sodium (Protonix Inj) 40 mg IVP DAILY [facility] Physical Exam - Constitutional Appears: Non-toxic, No Acute Distress - Head Exam Head Exam: ATRAUMATIC, NORMOCEPHALIC - Eye Exam Eye Exam: EOMI. absent: Scleral icterus - ENT Exam ENT Exam: Mucous Membranes Moist Additional comments: trachea midline - Neck Exam Neck exam: Positive for: Full Rom. Negative for: Lymphadenopathy - Respiratory Exam Respiratory Exam: NORMAL BREATHING PATTERN. absent: Accessory Muscle Use, Respiratory Distress - Cardiovascular Exam Cardiovascular Exam: REGULAR RHYTHM. absent: Tachycardia - GI/Abdominal Exam GI & Abdominal Exam: Soft. absent: Distended, Firm, Guarding, Rebound, Rigid, Tenderness - Rectal Exam Rectal Exam: absent: Hemorrhoids, Fecal Impaction Additional comments: normal tone - Extremities Exam Extremities exam: Positive for: normal capillary refill, normal inspection. Negative for: calf tenderness, pedal edema - Back Exam Back exam: absent: CVA tenderness (L), CVA tenderness (R) - Neurological Exam Neurological exam: Alert, Oriented x3 - Psychiatric Exam Psychiatric exam: Normal Affect, Normal Mood - Skin Skin Exam: Dry, Intact, Warm Results - Vital Signs Recent Vital Signs: Last Vital Signs Temp 98.6 F 04/05/19 16:39 Pulse 68 04/05/19 16:39 Resp 19 04/05/19 16:39 BP 103/66 04/05/19 16:39 Pulse Ox 98 04/05/19 07:53 - Labs Result Diagrams: 04/05/19 16:00 04/05/19 05:01 Labs: Laboratory Results - last 24 hr 0504/05/19 04/05/19 05:01 05:01 05:01 WBC 10.0 RBC 3.76 Hgb 9.2 L Hct 30.1 L MCV 80.1 MCH 24.5 L MCHC 30.6 L RDW 13.2 Plt Count 278 MPV 8.7 Neut % (Auto) 62.8 Lymph % (Auto) 25.1 Sharp % (Auto) 8.1 H Eos % (Auto) 3.6 Baso % (Auto) 0.4 Lymph # (Auto) 2.5 Sharp # (Auto) 0.8 H Eos # (Auto) 0.4 Baso # (Auto) 0.04 Absolute Neuts (auto) 6.27 PT 10.8 INR 0.96 APTT 36.6 Sodium 128 L Potassium 4.4 Chloride 94 L Carbon Dioxide 20 L Anion Gap 18 BUN 22 H Creatinine 1.6 H Est GFR ( Amer) 50 Est GFR (Non-Af Amer) 41 POC Glucose (mg/dL) Random Glucose 111 H Serum Osmolality Calcium 9.1 Total Bilirubin 0.5 AST 24 ALT 17 Alkaline Phosphatase 86 Lactate Dehydrogenase 323 L Total Creatine Kinase 134 Troponin I < 0.01 Total Protein 7.7 Albumin 4.4 Globulin 3.4 Albumin/Globulin Ratio 1.3 Amylase 137 H Lipase 408 H TSH 3rd Generation Blood Type Blood Type Confirm Antibody Screen Crossmatch BBK History Checked 04/05/19 04/05/19 04/05/19 05:01 05:30 06:12 WBC RBC Hgb Hct MCV MCH MCHC RDW Plt Count MPV Neut % (Auto) Lymph % (Auto) Sharp % (Auto) Eos % (Auto) Baso % (Auto) Lymph # (Auto) Sharp # (Auto) Eos # (Auto) Baso # (Auto) Absolute Neuts (auto) PT INR APTT Sodium Potassium Chloride Carbon Dioxide Anion Gap BUN Creatinine Est GFR ( Amer) Est GFR (Non-Af Amer) POC Glucose (mg/dL) 137 H Random Glucose Serum Osmolality Calcium Total Bilirubin AST ALT Alkaline Phosphatase Lactate Dehydrogenase Total Creatine Kinase Troponin I Total Protein Albumin Globulin Albumin/Globulin Ratio Amylase Lipase TSH 3rd Generation Blood Type B POSITIVE Blood Type Confirm B POSITIVE Antibody Screen Negative Crossmatch See Detail BBK History Checked No verified bt 04/05/19 04/05/19 04/05/19 11:09 11:35 11:35 WBC 8.6 RBC 3.31 L Hgb 8.2 L Hct 26.0 L MCV 78.5 L MCH 24.8 L MCHC 31.5 RDW 13.1 Plt Count 237 MPV 8.8 Neut % (Auto) Lymph % (Auto) Sharp % (Auto) Eos % (Auto) Baso % (Auto) Lymph # (Auto) Sharp # (Auto) Eos # (Auto) Baso # (Auto) Absolute Neuts (auto) PT INR APTT Sodium Potassium Chloride Carbon Dioxide Anion Gap BUN Creatinine Est GFR ( Amer) Est GFR (Non-Af Amer) POC Glucose (mg/dL) 145 H Random Glucose Serum Osmolality Calcium Total Bilirubin AST ALT Alkaline Phosphatase Lactate Dehydrogenase Total Creatine Kinase Troponin I Total Protein Albumin Globulin Albumin/Globulin Ratio Amylase Lipase TSH 3rd Generation 1.52 Blood Type Blood Type Confirm Antibody Screen Crossmatch BBK History Checked 04/05/19 04/05/19 04/05/19 11:35 13:05 16:00 WBC 9.1 RBC 3.39 L Hgb 8.4 L Hct 26.6 L MCV 78.5 L MCH 24.8 L MCHC 31.6 RDW 13.5 Plt Count 202 MPV 8.5 Neut % (Auto) Lymph % (Auto) Sharp % (Auto) Eos % (Auto) Baso % (Auto) Lymph # (Auto) Sharp # (Auto) Eos # (Auto) Baso # (Auto) Absolute Neuts (auto) PT INR APTT Sodium Potassium Chloride Carbon Dioxide Anion Gap BUN Creatinine Est GFR ( Amer) Est GFR (Non-Af Amer) POC Glucose (mg/dL) Random Glucose Serum Osmolality 267 L Calcium Total Bilirubin AST ALT Alkaline Phosphatase Lactate Dehydrogenase Total Creatine Kinase Troponin I < 0.01 Total Protein Albumin Globulin Albumin/Globulin Ratio Amylase Lipase TSH 3rd Generation Blood Type Blood Type Confirm Antibody Screen Crossmatch BBK History Checked - Imaging and Cardiology Bleeding scan Status: Image reviewed by me, Report reviewed by me Assessment & Plan - Assessment and Plan (Free Text) Assessment: 88M with Lower GI bleed Plan: Continue to monitor hemoglobin monitor bowel movements for further bleeding transfuse PRN follow up GI plan and colonoscopy tomorrow no immediate surgery required D/W Dr. Gerber Isaacs PGY4
[2019-04-05 20:45] LABS: HEMOGLOBIN 9.3 g/dL (14.0-18.0); MEAN CELL VOLUME 79.7 fl (80.0-105.0); MEAN CORPUSCULAR HEMOGLOBIN 25.8 pg (25.0-35.0); MEAN CORPUSCULAR HGB CONC 32.4 g/dl (31.0-37.0); MEAN PLATELET VOLUME 8.6 fl (7.0-11.0); RBC 3.6 10^6/uL (3.5-6.1); RED CELL DISTRIBUTION WIDTH 14.6 % (11.5-14.5); WHITE BLOOD COUNT 8.6 10^3/uL (4.5-11.0)
[2019-04-06 01:08] LABS: HEMOGLOBIN 8.4 g/dL (14.0-18.0)
[2019-04-06 06:48] LABS: HEMOGLOBIN 7.9 g/dL (14.0-18.0); MEAN CELL VOLUME 79.7 fl (80.0-105.0); MEAN CORPUSCULAR HEMOGLOBIN 25.9 pg (25.0-35.0); MEAN CORPUSCULAR HGB CONC 32.5 g/dl (31.0-37.0); MEAN PLATELET VOLUME 8.6 fl (7.0-11.0); RBC 3.05 10^6/uL (3.5-6.1); RED CELL DISTRIBUTION WIDTH 14.7 % (11.5-14.5); WHITE BLOOD COUNT 8.8 10^3/uL (4.5-11.0)
[2019-04-06 07:06] LABS: CALCIUM 8.6 mg/dL (8.4-10.5)
[2019-04-06 07:17] LABS: URINE BILIRUBIN NEGATIVE (NEGATIVE); URINE BLOOD NEGATIVE (NEGATIVE); URINE GLUCOSE (UA) NEGATIVE (NEGATIVE); URINE LEUKOCYTE ESTERASE NEGATIVE Leu/uL (NEGATIVE); URINE PROTEIN NEGATIVE mg/dL (<30 mg/dL); URINE UROBILINOGEN 0.2 E.U./dL (<1 E.U./dL)
[2019-04-06 07:25] LABS: URINE APPEARANCE CLEAR (CLEAR); URINE COLOR YELLOW (YELLOW)
--- NOTE | 2019-04-06 09:11 | CP.PCM.PN ---
Subjective - Date & Time of Evaluation Date of Evaluation: 04/06/19 Time of Evaluation: 07:30 - Subjective Subjective: General Surgery Dr. Mayes Pt seen and examined @bedside. No acute events overnight. Per pt & nurse, no new melena/hematochezia. Pt has no complaints. denies F/C, CP, SOB, N/V, abd pain. NPO. Objective - Vital Signs/Intake and Output Vital Signs (last 24 hours): Temp Pulse Resp BP Pulse Ox 98.6 F 68 17 141/97 H 100 04/06/19 06:00 04/06/19 06:00 04/05/19 20:10 04/05/19 20:01 04/05/19 19:50 Intake and Output: 04/06/19 04/06/19 06:59 18:59 Intake Total 325 2131 Balance 325 2131 - Medications Medications: Current Medications Atorvastatin Calcium (Lipitor) 40 mg PO HS EDNA Last Admin: 04/05/19 22:00 Dose: 40 mg Dextrose (Dextrose 50% Inj) 0 ml IV STAT PRN; Protocol PRN Reason: Hypoglycemia Protocol Dextrose (Dextrose 5% In Water 1000 Ml) 1,000 mls @ 0 mls/hr IV .Q0M PRN; Protocol PRN Reason: Hypoglycemia Protocol Sodium Chloride (Sodium Chloride 0.9%) 1,000 mls @ 100 mls/hr IV .Q10H EDNA Last Admin: 04/05/19 22:00 Dose: 100 mls/hr Insulin Human Lispro (Humalog Low) 0 units SC ACHS EDNA; Protocol Last Admin: 04/05/19 21:56 Dose: Not Given Pantoprazole Sodium (Protonix Inj) 40 mg IVP DAILY EDNA - Labs Labs: 04/06/19 06:20 04/06/19 06:20 PT 10.8 SECONDS (9.4-12.5) 04/05/19 05:01 INR 0.96 04/05/19 05:01 APTT 36.6 Seconds (26.9-38.3) 04/05/19 05:01 - Constitutional Appears: Non-toxic, No Acute Distress - Head Exam Head Exam: NORMAL INSPECTION - Eye Exam Eye Exam: Normal appearance - ENT Exam ENT Exam: Mucous Membranes Moist - Respiratory Exam Respiratory Exam: NORMAL BREATHING PATTERN. absent: Accessory Muscle Use, Respiratory Distress - Cardiovascular Exam Cardiovascular Exam: REGULAR RHYTHM. absent: Bradycardia, Tachycardia - GI/Abdominal Exam GI & Abdominal Exam: Soft. absent: Distended, Firm, Guarding, Rigid, Tenderness, Rebound - Extremities Exam Extremities Exam: Normal Inspection - Neurological Exam Neurological Exam: Alert, Awake, Oriented x3 - Psychiatric Exam Psychiatric exam: Normal Affect, Normal Mood - Skin Skin Exam: Dry, Intact, Normal Color, Warm Assessment and Plan - Assessment and Plan (Free Text) Assessment: 88 y/o M w/ Lower GI bleed Plan: - monitor Hgb Q4-Q6 until stable - monitor for further GI bleeding - transfuse PRN - f/u GI plan for colonoscopy - no immediate surgery at this time Pt discussed w/ Dr. Gerber Roe PGY3
--- NOTE | 2019-04-06 09:20 | CP.PCM.PN ---
<Jesus Garcia - Last Filed: 04/06/19 10:22> Subjective - Date & Time of Evaluation Date of Evaluation: 04/06/19 Time of Evaluation: 09:30 - Subjective Subjective: Jesus Garcia-Internal Medicine Resident- Progress Note on Behalf of Dr. Luu Subjective: Patient seen and examined at bedside. No new melena/bright red blood per rectum. Denies associated abdominal pain, nausea, vomiting, constipation. Further denies fever, chills, dizziness, headache, chest pain, SOB, and urinary symptoms. 12 point ROS negative except as indicated in the HPI Physical Examination: - Constitutional Appears: No Acute Distress - Head Exam Head Exam: ATRAUMATIC, NORMAL INSPECTION, NORMOCEPHALIC - Eye Exam Eye Exam: EOMI, Normal appearance - ENT Exam ENT Exam: Mucous Membranes Moist - Respiratory Exam Respiratory Exam: CTA bilaterally, absent: Accessory Muscle Use, Chest Wall Tenderness, Rales, Rhonchi, Wheezes, Respiratory Distress - Cardiovascular Exam Cardiovascular Exam: RRR, +S1, +S2 - GI/Abdominal Exam GI & Abdominal Exam: Normal Bowel Sounds, Soft, Tenderness to palpation, absent: Distended, Firm, Guarding, Organomegaly, Rebound, Rigid - Extremities Exam Extremities exam: Positive for: normal inspection, Negative for: calf tenderness - Back Exam Back exam: No CVA tenderness bilaterally - Neurological Exam Neurological exam: Alert, Oriented x3 - Psychiatric Exam Psychiatric exam: Normal Affect, Normal Mood - Skin Skin Exam: Dry, Intact, Normal Color, Warm Assessment and Plan: Patient is a 88 year old male with a past medical history of colonic polyp, GI bleed, IN, CAD s/p stent placement, hypertension, hyperlipidemia, and diabetes who was admitted for evaluation and treatment of cynthia blood in the stool. GI hemorrhage- delayed post polypectomy bleed vs diverticular bleed Suspected MARGARET on CKD- need baseline creatinine/BUN Hx of IN Hx of CAD s/p stent placement Hx of hypertension Hx of hyperlipidemia Hx of diabetes - start on clear liquid diet - continue protonix 40mg IV daily - CBC q6h- trend hemoglobin - 2 large bore peripheral IVs - transfuse pRBCs if Hgb<8 - s/p 2 units pRBCs, 1 unit of platelets, 1 unit FFP - reviewed records from previous colonoscopy for review- scattered pandiverticulosis, 7mm ascending colon polyp s/p snare polypectomy, 1.5cm pedunculated polyp at 20cm s/p snare polypectomy, 5mm polyp at 20 cm s/p snare polypectomy, otherwise normal exam to cecum. No bleeding noted. - nuclear bleeding scan ordered- Abnormal accumulation is seen near the midline of the mid abdomen with peristalsis distally. The bleed is most likely in the descending or sigmoid colon. - recommend holding antiplatelet medications at this time - will perform flex sig vs. full colonoscopy on 04/07/2019 if bleeding continues Patient seen, case discussed with, and plan approved by attending physician, Dr. Luu. Objective - Vital Signs/Intake and Output Vital Signs (last 24 hours): Temp Pulse Resp BP Pulse Ox 98.6 F 68 17 141/97 H 100 04/06/19 06:00 04/06/19 06:00 04/05/19 20:10 04/05/19 20:01 04/05/19 19:50 Intake and Output: 04/06/19 04/06/19 06:59 18:59 Intake Total 325 2131 Balance 325 2131 - Medications Medications: Current Medications Atorvastatin Calcium (Lipitor) 40 mg PO HS EDNA Last Admin: 04/05/19 22:00 Dose: 40 mg Dextrose (Dextrose 50% Inj) 0 ml IV STAT PRN; Protocol PRN Reason: Hypoglycemia Protocol Dextrose (Dextrose 5% In Water 1000 Ml) 1,000 mls @ 0 mls/hr IV .Q0M PRN; Protocol PRN Reason: Hypoglycemia Protocol Sodium Chloride (Sodium Chloride 0.9%) 1,000 mls @ 100 mls/hr IV .Q10H EDNA Last Admin: 04/05/19 22:00 Dose: 100 mls/hr Insulin Human Lispro (Humalog Low) 0 units SC ACHS EDNA; Protocol Last Admin: 04/05/19 21:56 Dose: Not Given Pantoprazole Sodium (Protonix Inj) 40 mg IVP DAILY EDNA - Labs Labs: 04/06/19 06:20 04/06/19 06:20 PT 10.8 SECONDS (9.4-12.5) 04/05/19 05:01 INR 0.96 04/05/19 05:01 APTT 36.6 Seconds (26.9-38.3) 04/05/19 05:01 <Mary Ann Luu V - Last Filed: 04/06/19 20:09> Objective - Vital Signs/Intake and Output Vital Signs (last 24 hours): Temp Pulse Resp BP Pulse Ox 98.5 F 76 18 129/56 L 99 04/06/19 18:44 04/06/19 18:44 04/06/19 18:44 04/06/19 18:44 04/06/19 18:41 Intake and Output: 04/06/19 04/07/19 18:59 06:59 Intake Total 2131 Balance 2131 - Medications Medications: Current Medications Atorvastatin Calcium (Lipitor) 40 mg PO HS EDNA Last Admin: 04/05/19 22:00 Dose: 40 mg Dextrose (Dextrose 50% Inj) 0 ml IV STAT PRN; Protocol PRN Reason: Hypoglycemia Protocol Dextrose (Dextrose 5% In Water 1000 Ml) 1,000 mls @ 0 mls/hr IV .Q0M PRN; Protocol PRN Reason: Hypoglycemia Protocol Sodium Chloride (Sodium Chloride 0.9%) 1,000 mls @ 100 mls/hr IV .Q10H EDNA Last Admin: 04/06/19 15:27 Dose: Not Given Insulin Human Lispro (Humalog Low) 0 units SC ACHS EDNA; Protocol Last Admin: 04/06/19 17:16 Dose: Not Given Pantoprazole Sodium (Protonix Inj) 40 mg IVP DAILY EDNA Last Admin: 04/06/19 09:51 Dose: 40 mg - Labs Labs: 04/06/19 17:36 04/06/19 06:20 PT 10.8 SECONDS (9.4-12.5) 04/05/19 05:01 INR 0.96 04/05/19 05:01 APTT 36.6 Seconds (26.9-38.3) 04/05/19 05:01 Attending/Attestation - Attestation I have personally seen and examined this patient.: Yes I have fully participated in the care of the patient.: Yes I have reviewed all pertinent clinical information, including history, physical exam and plan: Yes Notes (Text): This is an addendum to the GI progress note dictated by the resident. I did discuss with the patient's family were at bedside. Colonoscopy report was reviewed. Patient did have multiple polyps and diverticulosis. The clinical presentation most worse diverticular bleed rather than post polypectomy bleed. Patient was on aspirin Plavix. Patient did receive transfusion of platelets. Hemoglobin appears stable. On clear liquid diet. We will continue the conservative management. No plan for colonoscopy now unless the patient shows signs of rebleed 04/06/19 20:08
--- NOTE | 2019-04-06 09:34 | CP.CCUPN ---
<Red Redmond - Last Filed: 04/06/19 12:05> CCU Subjective - Physician Review Subjective (Free Text): 04/06/19 09:31 Red Redmond PGY-1 Critical Care Progress Note Patient seen and evaluated at bedside. No acute events reported overnight. Reports 1-2 soft bowel movements mixed with blood. Patient lying in bed in no acute distress. Denies chest pain, palpitations, shortness of breath, abdominal pain, headaches and blurry vision. CCU Objective - Vital Signs / Intake & Output Vital Signs (Last 4 hours): Vital Signs Temp Pulse 04/06/19 06:00 98.6 F 68 Intake and Output (Last 8hrs): Intake & Output 04/05/19 04/06/19 04/06/19 22:59 06:59 14:59 Intake Total 1575 2131 Balance 1575 2131 Weight 84.368 kg Intake: IV 925 2131 Left Antecubital 925 2131 Oral 0 Blood Product 650 Red Blood Cells Cpd As1 325 Lr Unit [id number] Red Blood Cells Cpd As1 325 Lr Unit [id number] Other: # Voids Urine, Voided 2 # Bowel Movements 1 - Physical Exam Head: Positive for: Atraumatic, Normocephalic Pupils: Positive for: PERRL Extroacular Muscles: Positive for: EOMI Conjunctiva: Positive for: Normal Mouth: Positive for: Moist Mucous Membranes Neck: Positive for: Normal Range of Motion Respiratory/Chest: Positive for: Clear to Auscultation, Good Air Exchange. Negative for: Respiratory Distress, Accessory Muscle Use Cardiovascular: Positive for: Regular Rate and Rhythm, Normal S1, S2. Negative for: Murmurs Abdomen: Positive for: Normal Bowel Sounds. Negative for: Tenderness, Distention, Peritoneal Signs, Rebound, Guarding Back: Positive for: Normal Inspection Upper Extremity: Positive for: Normal Inspection. Negative for: Cyanosis, Edema Lower Extremity: Positive for: Normal Inspection. Negative for: Edema Neurological: Positive for: GCS=15, CN II-XII Intact, Speech Normal Skin: Positive for: Warm, Dry, Normal Color. Negative for: Rashes Psychiatric: Positive for: Alert, Oriented x 3, Normal Insight, Normal Concentration - Medications Active Medications: Active Medications Generic Name Dose Route Start Last Admin Trade Name Freq PRN Reason Stop Dose Admin Atorvastatin Calcium 40 mg 04/05/19 22:00 04/05/19 22:00 Lipitor PO 40 mg HS EDNA Administration Dextrose 0 ml 04/05/19 07:53 Dextrose 50% Inj IV STAT PRN Hypoglycemia Protocol Protocol Dextrose 1,000 mls @ 0 mls/hr 04/05/19 07:53 Dextrose 5% In Water 1000 Ml IV .Q0M PRN Hypoglycemia Protocol Protocol Per Protocol Sodium Chloride 1,000 mls @ 100 mls/hr 04/05/19 08:00 04/05/19 22:00 Sodium Chloride 0.9% IV 100 mls/hr .Q10H EDNA Administration Insulin Human Lispro 0 units 04/05/19 11:30 04/05/19 21:56 Humalog Low SC Not Given ACHS EDNA Protocol Pantoprazole Sodium 40 mg 04/06/19 10:00 Protonix Inj IVP DAILY EDNA - Patient Studies Lab Studies: Lab Studies 04/06/19 04/06/19 04/06/19 Range/Units 06:20 06:20 05:55 WBC 8.8 (4.5-11.0) 10^3/uL RBC 3.05 L (3.5-6.1) 10^6/uL Hgb 7.9 L (14.0-18.0) g/dL Hct 24.3 L (42.0-52.0) % MCV 79.7 L (80.0-105.0) fl MCH 25.9 (25.0-35.0) pg MCHC 32.5 (31.0-37.0) g/dl RDW 14.7 H (11.5-14.5) % Plt Count 201 (120.0-450.0) 10^3/uL MPV 8.6 (7.0-11.0) fl Sodium 130 L (132-148) mmol/L Potassium 4.3 (3.6-5.0) mmol/L Chloride 101 (98-107) mmol/L Carbon Dioxide 22 (21-33) mmol/L Anion Gap 12 (10-20) BUN 25 H (7-21) mg/dL Creatinine 1.7 H (0.8-1.5) mg/dl Est GFR ( Amer) 46 Est GFR (Non-Af Amer) 38 POC Glucose (mg/dL) (65-110) mg/dL Random Glucose 100 (70-110) mg/dL Serum Osmolality (272-300) mosm/kg Calcium 8.6 (8.4-10.5) mg/dL Troponin I ng/mL TSH 3rd Generation (0.46-4.68) mIU/mL Urine Color Yellow (YELLOW) Urine Appearance Clear (CLEAR) Urine pH 5.0 (4.7-8.0) Ur Specific [place] 1.010 (1.005-1.035) Urine Protein Negative (<30 mg/dL) mg/dL Urine Glucose (UA) Negative (NEGATIVE) mg/dL Urine Ketones Negative (NEGATIVE) mg/dL Urine Blood Negative (NEGATIVE) Urine Nitrate Negative (NEGATIVE) Urine Bilirubin Negative (NEGATIVE) Urine Urobilinogen 0.2 (<1 E.U./dL) E.U./dL Ur Leukocyte Esterase Negative (NEGATIVE) Santos/uL Blood Type Antibody Screen Crossmatch BBK History Checked 04/06/19 04/05/19 04/05/19 Range/Units 00:50 20:30 16:00 WBC 9.1 (4.5-11.0) 10^3/uL RBC 3.39 L (3.5-6.1) 10^6/uL Hgb 8.4 L 8.4 L (14.0-18.0) g/dL Hct 25.6 L 26.6 L (42.0-52.0) % MCV 78.5 L (80.0-105.0) fl MCH 24.8 L (25.0-35.0) pg MCHC 31.6 (31.0-37.0) g/dl RDW 13.5 (11.5-14.5) % Plt Count 202 (120.0-450.0) 10^3/uL MPV 8.5 (7.0-11.0) fl Sodium (132-148) mmol/L Potassium (3.6-5.0) mmol/L Chloride (98-107) mmol/L Carbon Dioxide (21-33) mmol/L Anion Gap (10-20) BUN (7-21) mg/dL Creatinine (0.8-1.5) mg/dl Est GFR ( Amer) Est GFR (Non-Af Amer) POC Glucose (mg/dL) (65-110) mg/dL Random Glucose (70-110) mg/dL Serum Osmolality (272-300) mosm/kg Calcium (8.4-10.5) mg/dL Troponin I < 0.01 ng/mL TSH 3rd Generation (0.46-4.68) mIU/mL Urine Color (YELLOW) Urine Appearance (CLEAR) Urine pH (4.7-8.0) Ur Specific [place] (1.005-1.035) Urine Protein (<30 mg/dL) mg/dL Urine Glucose (UA) (NEGATIVE) mg/dL Urine Ketones (NEGATIVE) mg/dL Urine Blood (NEGATIVE) Urine Nitrate (NEGATIVE) Urine Bilirubin (NEGATIVE) Urine Urobilinogen (<1 E.U./dL) E.U./dL Ur Leukocyte Esterase (NEGATIVE) Santos/uL Blood Type Antibody Screen Crossmatch BBK History Checked 04/05/19 04/05/19 04/05/19 Range/Units 13:05 11:35 11:35 WBC (4.5-11.0) 10^3/uL RBC (3.5-6.1) 10^6/uL Hgb (14.0-18.0) g/dL Hct (42.0-52.0) % MCV (80.0-105.0) fl MCH (25.0-35.0) pg MCHC (31.0-37.0) g/dl RDW (11.5-14.5) % Plt Count (120.0-450.0) 10^3/uL MPV (7.0-11.0) fl Sodium (132-148) mmol/L Potassium (3.6-5.0) mmol/L Chloride (98-107) mmol/L Carbon Dioxide (21-33) mmol/L Anion Gap (10-20) BUN (7-21) mg/dL Creatinine (0.8-1.5) mg/dl Est GFR ( Amer) Est GFR (Non-Af Amer) POC Glucose (mg/dL) (65-110) mg/dL Random Glucose (70-110) mg/dL Serum Osmolality 267 L (272-300) mosm/kg Calcium (8.4-10.5) mg/dL Troponin I < 0.01 ng/mL TSH 3rd Generation 1.52 (0.46-4.68) mIU/mL Urine Color (YELLOW) Urine Appearance (CLEAR) Urine pH (4.7-8.0) Ur Specific [place] (1.005-1.035) Urine Protein (<30 mg/dL) mg/dL Urine Glucose (UA) (NEGATIVE) mg/dL Urine Ketones (NEGATIVE) mg/dL Urine Blood (NEGATIVE) Urine Nitrate (NEGATIVE) Urine Bilirubin (NEGATIVE) Urine Urobilinogen (<1 E.U./dL) E.U./dL Ur Leukocyte Esterase (NEGATIVE) Santos/uL Blood Type Antibody Screen Crossmatch BBK History Checked 04/05/19 04/05/19 04/05/19 Range/Units 11:35 11:09 08:30 WBC 8.6 8.6 (4.5-11.0) 10^3/uL RBC 3.31 L 3.60 (3.5-6.1) 10^6/uL Hgb 8.2 L 9.3 L (14.0-18.0) g/dL Hct 26.0 L 28.7 L (42.0-52.0) % MCV 78.5 L 79.7 L (80.0-105.0) fl MCH 24.8 L 25.8 (25.0-35.0) pg MCHC 31.5 32.4 (31.0-37.0) g/dl RDW 13.1 14.6 H (11.5-14.5) % Plt Count 237 185 (120.0-450.0) 10^3/uL MPV 8.8 8.6 (7.0-11.0) fl Sodium (132-148) mmol/L Potassium (3.6-5.0) mmol/L Chloride (98-107) mmol/L Carbon Dioxide (21-33) mmol/L Anion Gap (10-20) BUN (7-21) mg/dL Creatinine (0.8-1.5) mg/dl Est GFR ( Amer) Est GFR (Non-Af Amer) POC Glucose (mg/dL) 145 H (65-110) mg/dL Random Glucose (70-110) mg/dL Serum Osmolality (272-300) mosm/kg Calcium (8.4-10.5) mg/dL Troponin I ng/mL TSH 3rd Generation (0.46-4.68) mIU/mL Urine Color (YELLOW) Urine Appearance (CLEAR) Urine pH (4.7-8.0) Ur Specific [place] (1.005-1.035) Urine Protein (<30 mg/dL) mg/dL Urine Glucose (UA) (NEGATIVE) mg/dL Urine Ketones (NEGATIVE) mg/dL Urine Blood (NEGATIVE) Urine Nitrate (NEGATIVE) Urine Bilirubin (NEGATIVE) Urine Urobilinogen (<1 E.U./dL) E.U./dL Ur Leukocyte Esterase (NEGATIVE) Santos/uL Blood Type Antibody Screen Crossmatch BBK History Checked 04/05/19 Range/Units 05:01 WBC (4.5-11.0) 10^3/uL RBC (3.5-6.1) 10^6/uL Hgb (14.0-18.0) g/dL Hct (42.0-52.0) % MCV (80.0-105.0) fl MCH (25.0-35.0) pg MCHC (31.0-37.0) g/dl RDW (11.5-14.5) % Plt Count (120.0-450.0) 10^3/uL MPV (7.0-11.0) fl Sodium (132-148) mmol/L Potassium (3.6-5.0) mmol/L Chloride (98-107) mmol/L Carbon Dioxide (21-33) mmol/L Anion Gap (10-20) BUN (7-21) mg/dL Creatinine (0.8-1.5) mg/dl Est GFR ( Amer) Est GFR (Non-Af Amer) POC Glucose (mg/dL) (65-110) mg/dL Random Glucose (70-110) mg/dL Serum Osmolality (272-300) mosm/kg Calcium (8.4-10.5) mg/dL Troponin I ng/mL TSH 3rd Generation (0.46-4.68) mIU/mL Urine Color (YELLOW) Urine Appearance (CLEAR) Urine pH (4.7-8.0) Ur Specific [place] (1.005-1.035) Urine Protein (<30 mg/dL) mg/dL Urine Glucose (UA) (NEGATIVE) mg/dL Urine Ketones (NEGATIVE) mg/dL Urine Blood (NEGATIVE) Urine Nitrate (NEGATIVE) Urine Bilirubin (NEGATIVE) Urine Urobilinogen (<1 E.U./dL) E.U./dL Ur Leukocyte Esterase (NEGATIVE) Santos/uL Blood Type B POSITIVE Antibody Screen Negative Crossmatch See Detail BBK History Checked No verified bt Laboratory Results - last 24 hr 04/05/19 04/05/19 04/05/19 05:01 08:30 11:09 WBC 8.6 RBC 3.60 Hgb 9.3 L Hct 28.7 L MCV 79.7 L MCH 25.8 MCHC 32.4 RDW 14.6 H Plt Count 185 MPV 8.6 Sodium Potassium Chloride Carbon Dioxide Anion Gap BUN Creatinine Est GFR ( Amer) Est GFR (Non-Af Amer) POC Glucose (mg/dL) 145 H Random Glucose Serum Osmolality Calcium Troponin I TSH 3rd Generation Urine Color Urine Appearance Urine pH Ur Specific [place] Urine Protein Urine Glucose (UA) Urine Ketones Urine Blood Urine Nitrate Urine Bilirubin Urine Urobilinogen Ur Leukocyte Esterase Blood Type B POSITIVE Antibody Screen Negative Crossmatch See Detail BBK History Checked No verified bt 04/05/19 04/05/19 04/05/19 11:35 11:35 11:35 WBC 8.6 RBC 3.31 L Hgb 8.2 L Hct 26.0 L MCV 78.5 L MCH 24.8 L MCHC 31.5 RDW 13.1 Plt Count 237 MPV 8.8 Sodium Potassium Chloride Carbon Dioxide Anion Gap BUN Creatinine Est GFR ( Amer) Est GFR (Non-Af Amer) POC Glucose (mg/dL) Random Glucose Serum Osmolality 267 L Calcium Troponin I TSH 3rd Generation 1.52 Urine Color Urine Appearance Urine pH Ur Specific [place] Urine Protein Urine Glucose (UA) Urine Ketones Urine Blood Urine Nitrate Urine Bilirubin Urine Urobilinogen Ur Leukocyte Esterase Blood Type Antibody Screen Crossmatch BBK History Checked 04/05/19 04/05/19 04/05/19 13:05 16:00 20:30 WBC 9.1 RBC 3.39 L Hgb 8.4 L Hct 26.6 L MCV 78.5 L MCH 24.8 L MCHC 31.6 RDW 13.5 Plt Count 202 MPV 8.5 Sodium Potassium Chloride Carbon Dioxide Anion Gap BUN Creatinine Est GFR ( Amer) Est GFR (Non-Af Amer) POC Glucose (mg/dL) Random Glucose Serum Osmolality Calcium Troponin I < 0.01 < 0.01 TSH 3rd Generation Urine Color Urine Appearance Urine pH Ur Specific [place] Urine Protein Urine Glucose (UA) Urine Ketones Urine Blood Urine Nitrate Urine Bilirubin Urine Urobilinogen Ur Leukocyte Esterase Blood Type Antibody Screen Crossmatch BBK History Checked 04/06/19 04/06/19 04/06/19 00:50 05:55 06:20 WBC 8.8 RBC 3.05 L Hgb 8.4 L 7.9 L Hct 25.6 L 24.3 L MCV 79.7 L MCH 25.9 MCHC 32.5 RDW 14.7 H Plt Count 201 MPV 8.6 Sodium Potassium Chloride Carbon Dioxide Anion Gap BUN Creatinine Est GFR ( Amer) Est GFR (Non-Af Amer) POC Glucose (mg/dL) Random Glucose Serum Osmolality Calcium Troponin I TSH 3rd Generation Urine Color Yellow Urine Appearance Clear Urine pH 5.0 Ur Specific [place] 1.010 Urine Protein Negative Urine Glucose (UA) Negative Urine Ketones Negative Urine Blood Negative Urine Nitrate Negative Urine Bilirubin Negative Urine Urobilinogen 0.2 Ur Leukocyte Esterase Negative Blood Type Antibody Screen Crossmatch BBK History Checked 04/06/19 06:20 WBC RBC Hgb Hct MCV MCH MCHC RDW Plt Count MPV Sodium 130 L Potassium 4.3 Chloride 101 Carbon Dioxide 22 Anion Gap 12 BUN 25 H Creatinine 1.7 H Est GFR ( Amer) 46 Est GFR (Non-Af Amer) 38 POC Glucose (mg/dL) Random Glucose 100 Serum Osmolality Calcium 8.6 Troponin I TSH 3rd Generation Urine Color Urine Appearance Urine pH Ur Specific [place] Urine Protein Urine Glucose (UA) Urine Ketones Urine Blood Urine Nitrate Urine Bilirubin Urine Urobilinogen Ur Leukocyte Esterase Blood Type Antibody Screen Crossmatch BBK History Checked Radiology Impressions: Radiology Impressions GI Bleed Scan Nuclear Medicine 04/05/19 06:02 IMPRESSION: Abnormal accumulation is seen near the midline of the mid abdomen with peristalsis distally. The bleed is most likely in the descending or sigmoid colon. Fingerstick Blood Sugar Results: 113 Review of Systems - Review of Systems Review of Systems: 12 point ROS completed and negative except as described in HPI. Critical Care Progress Note - Nutrition Nutrition: Nutrition Category Date Time Status NPO Diet [DIET] Diets 04/05/19 Lunch Ordered Assessment/Plan - Assessment and Plan (Free Text) Assessment: 88 year old male with a past medical history of colonic polyp, GI bleed, ND, CAD s/p stent placement, hypertension, hyperlipidemia, and diabetes who was admitted for evaluation and treatment of cynthia blood in the stool. Neuro: -AAOx3, no FND, moving extremities past midline. -Monitor neuro status. -Reorient patient as necessary. Cardio: -RRR, normotensive, no signs of HD compromise -F/u Echo -Maintain MAP>65. -Monitor for S/S, HD compromise. Pulm: -No signs of respiratory distress. CTA B/L -Maintain O2 saturation >90%. -O2 NC PRN -Elevate bed to 30 degrees GI: -NPO -Protonix -GI on board- Dr. Luu- if persistently bleeding, plan to scope vs flex sig 04/07 -reported past records from [place]: previous colonoscopy for review- scattered pandiverticulosis, 7mm ascending colon polyp s/p snare polypectomy, 1.5cm pedunculated polyp at 20cm s/p snare polypectomy, 5mm polyp at 20 cm s/p snare polypectomy, otherwise normal exam to cecum. No bleeding noted. 04/05 Nuclear bleeding scan showed likely bleed in sigmoid/descending colon /Nephro: -BUN/Cr stable but elevated -Hyponatremia 130, improved from yesterday. -C/w NS@100 cc/hr -F/U urine studies -Continue monitoring. -Replete electrolytes as needed. -Maintain euvolemia. Endocrinology: -Random glucose: 100 -Maintain euglycemia. Heme/Onc: -H/H 7.9 currently s/p 2 unit PRBC, 1 FFP and 1 Platelet, 1 unit PRBC ordered -F/U H&H q6 -No signs of HD compromise. ID: -Afebrile, no leukocytosis -Monitor for signs and symptoms of infection. DVT prophylaxis: SCDs, chemoprophylaxis contraindicated in bleed GI prophylaxis: Protonix Patient seen, case reviewed and plan approved by Dr. Munira Tucker. Red Redmond, PGY-1 <Jacklyn Tucker - Last Filed: 04/06/19 15:50> CCU Objective - Vital Signs / Intake & Output Vital Signs (Last 4 hours): Vital Signs Temp Pulse Resp BP Pulse Ox 04/06/19 15:10 98.5 F 72 18 110/61 04/06/19 14:47 98.5 F 74 18 119/55 L 04/06/19 14:20 66 15 95 04/06/19 14:10 73 26 H 97 04/06/19 14:00 60 119/55 L 97 04/06/19 13:54 73 19 04/06/19 13:50 75 14 99 04/06/19 13:40 72 21 98 04/06/19 13:30 77 20 96 04/06/19 13:20 74 22 97 04/06/19 13:10 75 18 98 04/06/19 13:00 121/54 L 04/06/19 12:59 74 19 98 04/06/19 12:50 74 18 96 04/06/19 12:40 81 19 98 04/06/19 12:30 77 22 99 04/06/19 12:20 79 18 98 04/06/19 12:10 77 27 H 99 04/06/19 12:01 71 28 H 114/80 100 04/06/19 12:00 74 29 H 98 Intake and Output (Last 8hrs): Intake & Output 04/06/19 04/06/19 04/06/19 06:59 14:59 22:59 Intake Total 2131 Balance 2131 Weight 84.368 kg Intake: IV 2130 Left Antecubital 2130 Oral 0 Blood Product 0 Red Blood Cells Cpd As1 0 Lr Unit [id number] Other: # Voids Urine, Voided 2 - Medications Active Medications: Active Medications Generic Name Dose Route Start Last Admin Trade Name Freq PRN Reason Stop Dose Admin Atorvastatin Calcium 40 mg 04/05/19 22:00 04/05/19 22:00 Lipitor PO 40 mg HS EDNA Administration Dextrose 0 ml 04/05/19 07:53 Dextrose 50% Inj IV STAT PRN Hypoglycemia Protocol Protocol Dextrose 1,000 mls @ 0 mls/hr 04/05/19 07:53 Dextrose 5% In Water 1000 Ml IV .Q0M PRN Hypoglycemia Protocol Protocol Per Protocol Sodium Chloride 1,000 mls @ 100 mls/hr 04/05/19 08:00 04/06/19 15:27 Sodium Chloride 0.9% IV Not Given .Q10H EDNA Insulin Human Lispro 0 units 04/05/19 11:30 04/06/19 13:15 Humalog Low SC Not Given ACHS EDNA Protocol Pantoprazole Sodium 40 mg 04/06/19 10:00 04/06/19 09:51 Protonix Inj IVP 40 mg DAILY EDNA Administration - Patient Studies Lab Studies: Lab Studies 04/06/19 04/06/19 04/06/19 Range/Units 12:00 06:20 06:20 WBC 8.8 (4.5-11.0) 10^3/uL RBC 3.05 L (3.5-6.1) 10^6/uL Hgb 8.1 L 7.9 L (14.0-18.0) g/dL Hct 24.7 L 24.3 L (42.0-52.0) % MCV 79.7 L (80.0-105.0) fl MCH 25.9 (25.0-35.0) pg MCHC 32.5 (31.0-37.0) g/dl RDW 14.7 H (11.5-14.5) % Plt Count 201 (120.0-450.0) 10^3/uL MPV 8.6 (7.0-11.0) fl Sodium 130 L (132-148) mmol/L Potassium 4.3 (3.6-5.0) mmol/L Chloride 101 (98-107) mmol/L Carbon Dioxide 22 (21-33) mmol/L Anion Gap 12 (10-20) BUN 25 H (7-21) mg/dL Creatinine 1.7 H (0.8-1.5) mg/dl Est GFR ( Amer) 46 Est GFR (Non-Af Amer) 38 Random Glucose 100 (70-110) mg/dL Calcium 8.6 (8.4-10.5) mg/dL Troponin I ng/mL Urine Color (YELLOW) Urine Appearance (CLEAR) Urine pH (4.7-8.0) Ur Specific [place] (1.005-1.035) Urine Protein (<30 mg/dL) mg/dL Urine Glucose (UA) (NEGATIVE) mg/dL Urine Ketones (NEGATIVE) mg/dL Urine Blood (NEGATIVE) Urine Nitrate (NEGATIVE) Urine Bilirubin (NEGATIVE) Urine Urobilinogen (<1 E.U./dL) E.U./dL Ur Leukocyte Esterase (NEGATIVE) Santos/uL Blood Type Antibody Screen Crossmatch BBK History Checked 04/06/19 04/06/19 04/05/19 Range/Units 05:55 00:50 20:30 WBC (4.5-11.0) 10^3/uL RBC (3.5-6.1) 10^6/uL Hgb 8.4 L (14.0-18.0) g/dL Hct 25.6 L (42.0-52.0) % MCV (80.0-105.0) fl MCH (25.0-35.0) pg MCHC (31.0-37.0) g/dl RDW (11.5-14.5) % Plt Count (120.0-450.0) 10^3/uL MPV (7.0-11.0) fl Sodium (132-148) mmol/L Potassium (3.6-5.0) mmol/L Chloride (98-107) mmol/L Carbon Dioxide (21-33) mmol/L Anion Gap (10-20) BUN (7-21) mg/dL Creatinine (0.8-1.5) mg/dl Est GFR ( Amer) Est GFR (Non-Af Amer) Random Glucose (70-110) mg/dL Calcium (8.4-10.5) mg/dL Troponin I < 0.01 ng/mL Urine Color Yellow (YELLOW) Urine Appearance Clear (CLEAR) Urine pH 5.0 (4.7-8.0) Ur Specific [place] 1.010 (1.005-1.035) Urine Protein Negative (<30 mg/dL) mg/dL Urine Glucose (UA) Negative (NEGATIVE) mg/dL Urine Ketones Negative (NEGATIVE) mg/dL Urine Blood Negative (NEGATIVE) Urine Nitrate Negative (NEGATIVE) Urine Bilirubin Negative (NEGATIVE) Urine Urobilinogen 0.2 (<1 E.U./dL) E.U./dL Ur Leukocyte Esterase Negative (NEGATIVE) Santos/uL Blood Type Antibody Screen Crossmatch BBK History Checked 04/05/19 04/05/19 04/05/19 Range/Units 16:00 08:30 05:01 WBC 9.1 8.6 (4.5-11.0) 10^3/uL RBC 3.39 L 3.60 (3.5-6.1) 10^6/uL Hgb 8.4 L 9.3 L (14.0-18.0) g/dL Hct 26.6 L 28.7 L (42.0-52.0) % MCV 78.5 L 79.7 L (80.0-105.0) fl MCH 24.8 L 25.8 (25.0-35.0) pg MCHC 31.6 32.4 (31.0-37.0) g/dl RDW 13.5 14.6 H (11.5-14.5) % Plt Count 202 185 (120.0-450.0) 10^3/uL MPV 8.5 8.6 (7.0-11.0) fl Sodium (132-148) mmol/L Potassium (3.6-5.0) mmol/L Chloride (98-107) mmol/L Carbon Dioxide (21-33) mmol/L Anion Gap (10-20) BUN (7-21) mg/dL Creatinine (0.8-1.5) mg/dl Est GFR ( Amer) Est GFR (Non-Af Amer) Random Glucose (70-110) mg/dL Calcium (8.4-10.5) mg/dL Troponin I ng/mL Urine Color (YELLOW) Urine Appearance (CLEAR) Urine pH (4.7-8.0) Ur Specific [place] (1.005-1.035) Urine Protein (<30 mg/dL) mg/dL Urine Glucose (UA) (NEGATIVE) mg/dL Urine Ketones (NEGATIVE) mg/dL Urine Blood (NEGATIVE) Urine Nitrate (NEGATIVE) Urine Bilirubin (NEGATIVE) Urine Urobilinogen (<1 E.U./dL) E.U./dL Ur Leukocyte Esterase (NEGATIVE) Santos/uL Blood Type B POSITIVE Antibody Screen Negative Crossmatch See Detail BBK History Checked No verified bt Laboratory Results - last 24 hr 04/05/19 04/05/19 04/05/19 05:01 08:30 16:00 WBC 8.6 9.1 RBC 3.60 3.39 L Hgb 9.3 L 8.4 L Hct 28.7 L 26.6 L MCV 79.7 L 78.5 L MCH 25.8 24.8 L MCHC 32.4 31.6 RDW 14.6 H 13.5 Plt Count 185 202 MPV 8.6 8.5 Sodium Potassium Chloride Carbon Dioxide Anion Gap BUN Creatinine Est GFR ( Amer) Est GFR (Non-Af Amer) Random Glucose Calcium Troponin I Urine Color Urine Appearance Urine pH Ur Specific [place] Urine Protein Urine Glucose (UA) Urine Ketones Urine Blood Urine Nitrate Urine Bilirubin Urine Urobilinogen Ur Leukocyte Esterase Blood Type B POSITIVE Antibody Screen Negative Crossmatch See Detail BBK History Checked No verified bt 04/05/19 04/06/19 04/06/19 20:30 00:50 05:55 WBC RBC Hgb 8.4 L Hct 25.6 L MCV MCH MCHC RDW Plt Count MPV Sodium Potassium Chloride Carbon Dioxide Anion Gap BUN Creatinine Est GFR ( Amer) Est GFR (Non-Af Amer) Random Glucose Calcium Troponin I < 0.01 Urine Color Yellow Urine Appearance Clear Urine pH 5.0 Ur Specific [place] 1.010 Urine Protein Negative Urine Glucose (UA) Negative Urine Ketones Negative Urine Blood Negative Urine Nitrate Negative Urine Bilirubin Negative Urine Urobilinogen 0.2 Ur Leukocyte Esterase Negative Blood Type Antibody Screen Crossmatch BBK History Checked 04/06/19 04/06/19 04/06/19 06:20 06:20 12:00 WBC 8.8 RBC 3.05 L Hgb 7.9 L 8.1 L Hct 24.3 L 24.7 L MCV 79.7 L MCH 25.9 MCHC 32.5 RDW 14.7 H Plt Count 201 MPV 8.6 Sodium 130 L Potassium 4.3 Chloride 101 Carbon Dioxide 22 Anion Gap 12 BUN 25 H Creatinine 1.7 H Est GFR ( Amer) 46 Est GFR (Non-Af Amer) 38 Random Glucose 100 Calcium 8.6 Troponin I Urine Color Urine Appearance Urine pH Ur Specific [place] Urine Protein Urine Glucose (UA) Urine Ketones Urine Blood Urine Nitrate Urine Bilirubin Urine Urobilinogen Ur Leukocyte Esterase Blood Type Antibody Screen Crossmatch BBK History Checked Critical Care Progress Note - Nutrition Nutrition: Nutrition Category Date Time Status Liquid Diet [DIET] Diets 04/06/19 Breakfast Ordered Addendum Addendum: 04/06/19 15:50 ICU Attending Addendum Patient seen and examined. Case reviewed on round with housestaff. Agree with resident note above with the following additions/exceptions 88 M with past medical history of colonic polyp, GI bleed, ND, CAD s/p stent placement, hypertension, admitted with active GI bleed patient has hx oif GI bleeds while in [place] has had polys and polypectomy in the past GI plan for scope tomorrow 04/07 cont to monitor H/H transfuse as needed Rest of care as above in housestaff note Jacklyn Tucker MD Pulmonary Critical Care Attending
[2019-04-06] MEDS: Insulin Lispro (humaLOG) LOW Coverage SC SCH ×4 (09:40→23:44)
[2019-04-06] MEDS: Sodium Chloride 0.9% 1,000 ML IV SCH ×2 (09:42→15:27)
[2019-04-06 12:14] LABS: HEMOGLOBIN 8.1 g/dL (14.0-18.0)
--- NOTE | 2019-04-06 13:44 | CON ---
DATE OF CONSULTATION: 04/06/2019 CARDIOLOGY CONSULTATION HISTORY: The patient is an 88-year-old male, who presented to the emergency room with a history of GI bleeding. The patient had apparently an angioplasty done in [place], and he was seen in [place] for GI bleeding, for which his aspirin and Plavix were stopped, and he presents for followup. He does admit to intermittent dark stools. He suffers from hypertension, diabetes mellitus, and hypercholesterolemia. In the emergency room, he was found to have a hemoglobin of 8.4, which went down to 7.9 today. He underwent a GI workup, which included a GI bleeding scan, which revealed accumulation by the colon. He was given blood transfusions and GI consult is called. Currently, the patient is in bed without chest pain, without shortness of breath. SOCIAL HISTORY: The patient denies smoking. REVIEW OF SYSTEMS: Free of cardiac symptomatology. PHYSICAL EXAMINATION: VITAL SIGNS: Blood pressure is 141/97, the heart rate is in the 60s. NECK: Negative JVD. LUNGS: Without rales. CARDIAC: Heart rate S1, S2. EXTREMITIES: Without edema. LABORATORY DATA: EKG shows no acute changes. Hemoglobin is 7.9. Troponins are negative x2. BUN and creatinine are 25 and 1.7. IMPRESSION: 1. Gastrointestinal bleed. 2. Anemia. 3. Diabetes mellitus. 4. Hypertension. 5. History of percutaneous transluminal coronary angioplasty and stent in the past. 6. History of myocardial infarction. 7. No evidence for acute coronary syndrome. 8. Renal insufficiency. PLAN: Given these findings, obviously the patient cannot be on aspirin or Plavix today. We will obtain an echocardiogram to evaluate LV function. The patient will need a GI consult. Reynaldo Levi MD
--- NOTE | 2019-04-06 16:22 | CARD ---
APPROVED REPORT Date of service: 04/06/2019 EXAM: Two-dimensional and M-mode echocardiogram with Doppler and color Doppler. INDICATION Cardiac Disease: CAD 2D DIMENSIONS Left Atrium (2D)4.8 (1.6-4.0cm)IVSd1.6 (0.7-1.1cm) LVDd3.8 (3.9-5.9cm)PWd1.1 (0.7-1.1cm) LVDs2.7 (2.5-4.0cm)FS (%) 29.7 % LVEF (%)57.6 (>50%) M-Mode DIMENSIONS Aortic Root3.10 (2.2-3.7cm)Aortic Cusp Exc.1.40 (1.5-2.0cm) Aortic Valve AoV Peak Uemvigih230.0cm/Bernardo Peak GR.13mmHg Mitral Valve MV E Tegetsui84.5cm/sMV A Izxqngcj736.0cm/sE/A ratio0.6 TDI E/Lateral E'0.0E/Medial E'0.0 Tricuspid Valve TR Peak [id number]/sRAP [id number] Peak Gr.13mmHg [id number] LEFT VENTRICLE The left ventricle is normal size. There is mild concentric left ventricular hypertrophy. The left ventricular ejection fraction is within the normal range. Apical hypokinesis Transmitral Doppler flow pattern is Grade I-abnormal relaxation pattern. RIGHT VENTRICLE The right ventricle is normal size. There is normal right ventricular wall thickness. The right ventricular systolic function is normal. ATRIA The left atrium is mildly dilated. The right atrium size is normal. AORTIC VALVE The aortic valve is not well visualized. No aortic regurgitation is present. There is no aortic valvular stenosis. MITRAL VALVE The mitral valve is moderately thickened. There is no mitral valve regurgitation noted. There is no mitral valve stenosis. TRICUSPID VALVE The tricuspid valve is normal in structure. There is no tricuspid valve regurgitation noted. GREAT VESSELS The aortic root is normal in size. The IVC is normal in size and collapses >50% with inspiration. <Conclusion> There is mild concentric left ventricular hypertrophy. The left ventricular ejection fraction is within the normal range. Apical hypokinesis Transmitral Doppler flow pattern is Grade I-abnormal relaxation pattern.
--- NOTE | 2019-04-06 19:42 | CP.PCM.PN ---
<Dave Harrison - Last Filed: 04/06/19 19:42> Subjective - Date & Time of Evaluation Date of Evaluation: 04/06/19 Time of Evaluation: 07:00 - Subjective Subjective: Progress Note for Hospitalist Service - Ana M Harrison PGY2 Patient seen and examined this AM. Patient reportedly had bloody bowel movements overnight with last reported at 2 am. Patient denies chest pain, shortness of breath, abdominal pain, diarrhea, nausea, vomiting, fever, chills. Objective - Vital Signs/Intake and Output Vital Signs (last 24 hours): Temp Pulse Resp BP Pulse Ox 98.5 F 76 18 129/56 L 99 04/06/19 18:44 04/06/19 18:44 04/06/19 18:44 04/06/19 18:44 04/06/19 18:41 Intake and Output: 04/06/19 04/07/19 18:59 06:59 Intake Total 2131 Balance 2131 - Medications Medications: Current Medications Atorvastatin Calcium (Lipitor) 40 mg PO HS [facility] Last Admin: 04/05/19 22:00 Dose: 40 mg Dextrose (Dextrose 50% Inj) 0 ml IV STAT PRN; Protocol PRN Reason: Hypoglycemia Protocol Dextrose (Dextrose 5% In Water 1000 Ml) 1,000 mls @ 0 mls/hr IV .Q0M PRN; Protocol PRN Reason: Hypoglycemia Protocol Sodium Chloride (Sodium Chloride 0.9%) 1,000 mls @ 100 mls/hr IV .Q10H [facility] Last Admin: 04/06/19 15:27 Dose: Not Given Insulin Human Lispro (Humalog Low) 0 units SC ACHS [facility]; Protocol Last Admin: 04/06/19 17:16 Dose: Not Given Pantoprazole Sodium (Protonix Inj) 40 mg IVP DAILY [facility] Last Admin: 04/06/19 09:51 Dose: 40 mg - Labs Labs: 04/06/19 17:36 04/06/19 06:20 PT 10.8 SECONDS (9.4-12.5) 04/05/19 05:01 INR 0.96 04/05/19 05:01 APTT 36.6 Seconds (26.9-38.3) 04/05/19 05:01 - Constitutional Appears: No Acute Distress - Head Exam Head Exam: ATRAUMATIC, NORMAL INSPECTION, NORMOCEPHALIC - Eye Exam Eye Exam: EOMI, PERRL - ENT Exam ENT Exam: Mucous Membranes Moist - Respiratory Exam Respiratory Exam: Clear to Ausculation Bilateral, NORMAL BREATHING PATTERN. absent: Rhonchi, Wheezes - Cardiovascular Exam Cardiovascular Exam: REGULAR RHYTHM, +S1, +S2 - GI/Abdominal Exam GI & Abdominal Exam: Soft, Normal Bowel Sounds. absent: Firm, Guarding, Rigid, Tenderness - Extremities Exam Extremities Exam: Full ROM. absent: Pedal Edema - Neurological Exam Neurological Exam: Alert, Awake, Oriented x3 Neuro motor strength exam: Left Upper Extremity: 5, Right Upper Extremity: 5, Left Lower Extremity: 5, Right Lower Extremity: 5 - Psychiatric Exam Psychiatric exam: Normal Affect, Normal Mood - Skin Skin Exam: Dry, Intact Assessment and Plan - Assessment and Plan (Free Text) Assessment: 86 year old male with past medical history of colon polyp, HTN, CAD s/p angioplasty with possible stents, RI, Type 2 DM, hyperlipidemia who presented to the ED with complaint of painless hematochezia. Patient currently in ICU after having continuous bloody bm on admission. Patient currently hemodynamically stable in ICU for monitoring and evaluation. Plan: Painless Hematochezia - Etiology: Likely pandiverticulosis vs. polyp vs. avm - Bleeding Scan showing Abnormal accumulation is seen near the midline of the mid abdomen with peristalsis distally. The bleed is most likely in the descending or sigmoid colon. - Hold aspirin, plavix, IVF at 100 mL/Hr, IV protonix - CBC Q4H, BMP in AM, tele-monitoring - GI consult, follow up recs - Clear liquid diet, transfuse Hgb <8, continue to monitor for bloody bm - No plan for colonoscopy now unless rebleed - Previous Hospital records from [place] 03/17/2019 - Scattered pandiverticulosis, 7mm ascending colon polyp s/p snare polypectomy, 1.5cm pedunculated polyp at 20cm s/p snare polypectomy, 5mm polyp at 20 cm s/p snare polypectomy, otherwise normal exam to cecum. No bleeding noted. CKD - Etiology: Likely MARGARET in the setting of CKD3a with GFR of 41 - Review of previous admission in [place] showing elevated Cr of 1.7 - IVF NS will continue to monitor in Am Hyponatremia - Euvolemic Hyponatremia - On admission 128, today 130, continue to trend - Urine sodium, osm, Cr continues to be uncollected, will await results - Continue IVF NS 100ml/Hr CAD s/p stenting - continue holding ASA, plavix due to LGIB - Continue statin - EKG NSR, RRR HTN - Chronic, controlled - Patient with varying BP of normotensive and hypotensive - Hold Lisinopril 20mg DM2 - Chronic controlled on PO meds - Holding metformin for possible procedures/imaging - ISS - Hypoglycemic protocol - NPO HLD - Continue home Lipitor 40mg daily GI/DVT ppx - Protonix - Holding in setting of LGIB Patient case and plan discussed with attending, Dr. Weaver <Fitz Weaver - Last Filed: 04/07/19 07:38> Objective - Vital Signs/Intake and Output Vital Signs (last 24 hours): Temp Pulse Resp BP Pulse Ox 98.0 F 79 13 103/55 L 99 04/07/19 06:00 04/07/19 06:00 04/07/19 02:50 04/07/19 02:00 04/07/19 02:50 Intake and Output: 04/07/19 04/07/19 06:59 18:59 Intake Total 400 Output Total 800 Balance -400 - Medications Medications: Current Medications Atorvastatin Calcium (Lipitor) 40 mg PO HS [facility] Last Admin: 04/06/19 21:51 Dose: 40 mg Dextrose (Dextrose 50% Inj) 0 ml IV STAT PRN; Protocol PRN Reason: Hypoglycemia Protocol Dextrose (Dextrose 5% In Water 1000 Ml) 1,000 mls @ 0 mls/hr IV .Q0M PRN; Protocol PRN Reason: Hypoglycemia Protocol Sodium Chloride (Sodium Chloride 0.9%) 1,000 mls @ 100 mls/hr IV .Q10H [facility] Last Admin: 04/06/19 15:27 Dose: Not Given Insulin Human Lispro (Humalog Low) 0 units SC ACHS [facility]; Protocol Last Admin: 04/06/19 23:44 Dose: Not Given Pantoprazole Sodium (Protonix Inj) 40 mg IVP DAILY [facility] Last Admin: 04/06/19 09:51 Dose: 40 mg - Labs Labs: 04/07/19 06:15 04/07/19 06:15 PT 10.8 SECONDS (9.4-12.5) 04/05/19 05:01 INR 0.96 04/05/19 05:01 APTT 36.6 Seconds (26.9-38.3) 04/05/19 05:01 Attending/Attestation - Attestation I have personally seen and examined this patient.: Yes I have fully participated in the care of the patient.: Yes I have reviewed all pertinent clinical information, including history, physical exam and plan: Yes Notes (Text): 04/06/19 86 year old male with past medical history of CAD s/p possible stents on aspirin and plavix, hypertension, and diabetes who presented with complaint of hematochezia. He reports he had similar episode earlier this month and underwent colonoscopy which showed colon polyp. Prior records from [place] were reviewed. Continue with serial H/H monitoring; transfuse as needed. Ble eding scan was ordered which is positive for possible bleed in sigmoid or descending colon. Patient is on iv protonix and received PRBC transfusion, platelets and FFP. GI is following; continue to monitor for now and consider flex sig / colonoscopy if bleeding recurs. Cardiology evaluation was ap preciated; agrees with holding aspirin and plavix for now. Echocardiogram is ordered. Hyponatremia has improved. CKD is chronic. Fitz Weaver MD Hospitalist.
[2019-04-07 00:10] LABS: HEMOGLOBIN 8.9 g/dL (14.0-18.0)
[2019-04-07 06:36] LABS: HEMOGLOBIN 9.1 g/dL (14.0-18.0); MEAN CORPUSCULAR HGB CONC 31.7 g/dl (31.0-37.0); RBC 3.5 10^6/uL (3.5-6.1); RED CELL DISTRIBUTION WIDTH 15.1 % (11.5-14.5); WHITE BLOOD COUNT 7.1 10^3/uL (4.5-11.0)
[2019-04-07 07:08] LABS: CALCIUM 8.6 mg/dL (8.4-10.5)
--- NOTE | 2019-04-07 07:48 | CP.CCUPN ---
<Red Redmond - Last Filed: 04/07/19 10:56> CCU Subjective - Physician Review Subjective (Free Text): 04/06/19 09:31 Red Redmond PGY-1 Critical Care Progress Note Patient seen and evaluated at bedside. No acute events reported overnight. Patient lying in bed with family member at bedside. Reports no further bloody bowel movements. Patient lying in bed in no acute distress. Denies chest pain, palpitations, shortness of breath, abdominal pain, headaches and blurry vision. Family member at bedside. CCU Objective - Vital Signs / Intake & Output Vital Signs (Last 4 hours): Vital Signs Temp Pulse 04/07/19 06:00 98.0 F 79 Intake and Output (Last 8hrs): Intake & Output 04/06/19 04/07/19 04/07/19 22:59 06:59 14:59 Intake Total 400 Output Total 800 Balance -400 Weight 84.368 kg Intake: IV 0 Left Antecubital 0 Oral 400 Output: Urine 800 Urine, Voided 800 Stool 0 Emesis 0 - Physical Exam Head: Positive for: Atraumatic, Normocephalic Pupils: Positive for: PERRL Extroacular Muscles: Positive for: EOMI Conjunctiva: Positive for: Normal Mouth: Positive for: Moist Mucous Membranes Neck: Positive for: Normal Range of Motion Respiratory/Chest: Positive for: Clear to Auscultation, Good Air Exchange. Negative for: Respiratory Distress, Accessory Muscle Use Cardiovascular: Positive for: Regular Rate and Rhythm, Normal S1, S2. Negative for: Murmurs Abdomen: Positive for: Normal Bowel Sounds. Negative for: Tenderness, Distention, Peritoneal Signs, Rebound, Guarding Back: Positive for: Normal Inspection Upper Extremity: Positive for: Normal Inspection. Negative for: Cyanosis, Edema Lower Extremity: Positive for: Normal Inspection. Negative for: Edema Neurological: Positive for: GCS=15, CN II-XII Intact, Speech Normal Skin: Positive for: Warm, Dry, Normal Color. Negative for: Rashes Psychiatric: Positive for: Alert, Oriented x 3, Normal Insight, Normal Concentration - Medications Active Medications: Active Medications Generic Name Dose Route Start Last Admin Trade Name Freq PRN Reason Stop Dose Admin Atorvastatin Calcium 40 mg 04/05/19 22:00 04/06/19 21:51 Lipitor PO 40 mg HS EDNA Administration Dextrose 0 ml 04/05/19 07:53 Dextrose 50% Inj IV STAT PRN Hypoglycemia Protocol Protocol Dextrose 1,000 mls @ 0 mls/hr 04/05/19 07:53 Dextrose 5% In Water 1000 Ml IV .Q0M PRN Hypoglycemia Protocol Protocol Per Protocol Sodium Chloride 1,000 mls @ 100 mls/hr 04/05/19 08:00 04/06/19 15:27 Sodium Chloride 0.9% IV Not Given .Q10H EDNA Insulin Human Lispro 0 units 04/05/19 11:30 04/06/19 23:44 Humalog Low SC Not Given ACHS [facility] Protocol Pantoprazole Sodium 40 mg 04/06/19 10:00 04/06/19 09:51 Protonix Inj IVP 40 mg DAILY EDNA Administration - Patient Studies Lab Studies: Lab Studies 04/07/19 04/07/19 04/06/19 Range/Units 06:15 06:15 23:45 WBC 7.1 (4.5-11.0) 10^3/uL RBC 3.50 (3.5-6.1) 10^6/uL Hgb 9.1 L 8.9 L (14.0-18.0) g/dL Hct 28.7 L 27.8 L (42.0-52.0) % MCV 82.0 (80.0-105.0) fl MCH 26.0 (25.0-35.0) pg MCHC 31.7 (31.0-37.0) g/dl RDW 15.1 H (11.5-14.5) % Plt Count 192 (120.0-450.0) 10^3/uL MPV 9.0 (7.0-11.0) fl Sodium 134 (132-148) mmol/L Potassium 4.5 (3.6-5.0) mmol/L Chloride 104 (98-107) mmol/L Carbon Dioxide 23 (21-33) mmol/L Anion Gap 12 (10-20) BUN 17 (7-21) mg/dL Creatinine 1.5 (0.8-1.5) mg/dl Est GFR ( Amer) 54 Est GFR (Non-Af Amer) 44 POC Glucose (mg/dL) (65-110) mg/dL Random Glucose 98 (70-110) mg/dL Calcium 8.6 (8.4-10.5) mg/dL Blood Type Antibody Screen Crossmatch BBK History Checked 04/06/19 04/06/19 04/06/19 Range/Units 22:05 17:36 17:16 WBC (4.5-11.0) 10^3/uL RBC (3.5-6.1) 10^6/uL Hgb 9.0 L (14.0-18.0) g/dL Hct 27.7 L (42.0-52.0) % MCV (80.0-105.0) fl MCH (25.0-35.0) pg MCHC (31.0-37.0) g/dl RDW (11.5-14.5) % Plt Count (120.0-450.0) 10^3/uL MPV (7.0-11.0) fl Sodium (132-148) mmol/L Potassium (3.6-5.0) mmol/L Chloride (98-107) mmol/L Carbon Dioxide (21-33) mmol/L Anion Gap (10-20) BUN (7-21) mg/dL Creatinine (0.8-1.5) mg/dl Est GFR ( Amer) Est GFR (Non-Af Amer) POC Glucose (mg/dL) 115 H 98 (65-110) mg/dL Random Glucose (70-110) mg/dL Calcium (8.4-10.5) mg/dL Blood Type Antibody Screen Crossmatch BBK History Checked 04/06/19 04/06/19 04/06/19 Range/Units 13:14 12:00 09:08 WBC (4.5-11.0) 10^3/uL RBC (3.5-6.1) 10^6/uL Hgb 8.1 L (14.0-18.0) g/dL Hct 24.7 L (42.0-52.0) % MCV (80.0-105.0) fl MCH (25.0-35.0) pg MCHC (31.0-37.0) g/dl RDW (11.5-14.5) % Plt Count (120.0-450.0) 10^3/uL MPV (7.0-11.0) fl Sodium (132-148) mmol/L Potassium (3.6-5.0) mmol/L Chloride (98-107) mmol/L Carbon Dioxide (21-33) mmol/L Anion Gap (10-20) BUN (7-21) mg/dL Creatinine (0.8-1.5) mg/dl Est GFR ( Amer) Est GFR (Non-Af Amer) POC Glucose (mg/dL) 173 H 107 (65-110) mg/dL Random Glucose (70-110) mg/dL Calcium (8.4-10.5) mg/dL Blood Type Antibody Screen Crossmatch BBK History Checked 04/05/19 04/05/19 04/05/19 Range/Units 21:27 16:31 05:01 WBC (4.5-11.0) 10^3/uL RBC (3.5-6.1) 10^6/uL Hgb (14.0-18.0) g/dL Hct (42.0-52.0) % MCV (80.0-105.0) fl MCH (25.0-35.0) pg MCHC (31.0-37.0) g/dl RDW (11.5-14.5) % Plt Count (120.0-450.0) 10^3/uL MPV (7.0-11.0) fl Sodium (132-148) mmol/L Potassium (3.6-5.0) mmol/L Chloride (98-107) mmol/L Carbon Dioxide (21-33) mmol/L Anion Gap (10-20) BUN (7-21) mg/dL Creatinine (0.8-1.5) mg/dl Est GFR ( Amer) Est GFR (Non-Af Amer) POC Glucose (mg/dL) 117 H 128 H (65-110) mg/dL Random Glucose (70-110) mg/dL Calcium (8.4-10.5) mg/dL Blood Type B POSITIVE Antibody Screen Negative Crossmatch See Detail BBK History Checked No verified bt Laboratory Results - last 24 hr 04/05/19 04/05/19 04/05/19 05:01 16:31 21:27 WBC RBC Hgb Hct MCV MCH MCHC RDW Plt Count MPV Sodium Potassium Chloride Carbon Dioxide Anion Gap BUN Creatinine Est GFR ( Amer) Est GFR (Non-Af Amer) POC Glucose (mg/dL) 128 H 117 H Random Glucose Calcium Blood Type B POSITIVE Antibody Screen Negative Crossmatch See Detail BBK History Checked No verified bt 04/06/19 04/06/19 04/06/19 09:08 12:00 13:14 WBC RBC Hgb 8.1 L Hct 24.7 L MCV MCH MCHC RDW Plt Count MPV Sodium Potassium Chloride Carbon Dioxide Anion Gap BUN Creatinine Est GFR ( Amer) Est GFR (Non-Af Amer) POC Glucose (mg/dL) 107 173 H Random Glucose Calcium Blood Type Antibody Screen Crossmatch BBK History Checked 04/06/19 04/06/19 04/06/19 17:16 17:36 22:05 WBC RBC Hgb 9.0 L Hct 27.7 L MCV MCH MCHC RDW Plt Count MPV Sodium Potassium Chloride Carbon Dioxide Anion Gap BUN Creatinine Est GFR ( Amer) Est GFR (Non-Af Amer) POC Glucose (mg/dL) 98 115 H Random Glucose Calcium Blood Type Antibody Screen Crossmatch BBK History Checked 04/06/19 04/07/19 04/07/19 23:45 06:15 06:15 WBC 7.1 RBC 3.50 Hgb 8.9 L 9.1 L Hct 27.8 L 28.7 L MCV 82.0 MCH 26.0 MCHC 31.7 RDW 15.1 H Plt Count 192 MPV 9.0 Sodium 134 Potassium 4.5 Chloride 104 Carbon Dioxide 23 Anion Gap 12 BUN 17 Creatinine 1.5 Est GFR ( Amer) 54 Est GFR (Non-Af Amer) 44 POC Glucose (mg/dL) Random Glucose 98 Calcium 8.6 Blood Type Antibody Screen Crossmatch BBK History Checked Fingerstick Blood Sugar Results: 115 Review of Systems - Review of Systems Review of Systems: 12 point ROS completed and negative except as described in HPI. Critical Care Progress Note - Nutrition Nutrition: Nutrition Category Date Time Status Liquid Diet [DIET] Diets 04/06/19 Breakfast Ordered Assessment/Plan - Assessment and Plan (Free Text) Assessment: 88 year old male with a past medical history of colonic polyp, GI bleed, [place], CAD s/p stent placement, hypertension, hyperlipidemia, and diabetes who was admitted for evaluation and treatment of cynthia blood in the stool. Neuro: -AAOx3, no FND, moving extremities past midline. -Monitor neuro status. -Reorient patient as necessary. Cardio: -RRR, normotensive, no signs of HD compromise -04/06 Echo shows EF 57%, mild concentric LVH, apical hypokinesis -Maintain MAP>65. -Monitor for S/S, HD compromise. Pulm: -No signs of respiratory distress. CTA B/L -Maintain O2 saturation >90%. -O2 NC PRN -Elevate bed to 30 degrees GI: -NPO -Protonix -GI on board- Dr. Luu- if persistently bleeding, plan to scope vs flex sig -reported past records from [place]: previous colonoscopy for review- scattered pandiverticulosis, 7mm ascending colon polyp s/p snare polypectomy, 1.5cm pedunculated polyp at 20cm s/p snare polypectomy, 5mm polyp at 20 cm s/p snare polypectomy, otherwise normal exam to cecum. No bleeding noted. 04/05 Nuclear bleeding scan showed likely bleed in sigmoid/descending colon /Nephro: -BUN/Cr stable but elevated -Hyponatremia improved -C/w NS@100 cc/hr, can consider discontinuing if/when tolerating diet -F/U urine studies -Continue monitoring. -Replete electrolytes as needed. -Maintain euvolemia. Endocrinology: -Random glucose: 98 -Maintain euglycemia. Heme/Onc: -Stabilized H/H 9.1 currently s/p 3 unit PRBC, 1 FFP and 1 Platelet overall -F/U H&H q6 -No signs of HD compromise. ID: -Afebrile, no leukocytosis -Monitor for signs and symptoms of infection. DVT prophylaxis: SCDs, chemoprophylaxis contraindicated in bleed GI prophylaxis: Protonix Patient seen, case reviewed and plan approved by Dr. Munira Tucker. Red Redmond, PGY-1 <Jacklyn Tucker - Last Filed: 04/07/19 13:08> CCU Objective - Vital Signs / Intake & Output Intake and Output (Last 8hrs): Intake & Output 04/06/19 04/07/19 04/07/19 22:59 06:59 14:59 Intake Total 400 Output Total 800 Balance -400 Weight 84.368 kg Intake: IV 0 Left Antecubital 0 Oral 400 Output: Urine 800 Urine, Voided 800 Stool 0 Emesis 0 - Medications Active Medications: Active Medications Generic Name Dose Route Start Last Admin Trade Name Freq PRN Reason Stop Dose Admin Atorvastatin Calcium 40 mg 04/05/19 22:00 04/06/19 21:51 Lipitor PO 40 mg HS EDNA Administration Dextrose 0 ml 04/05/19 07:53 Dextrose 50% Inj IV STAT PRN Hypoglycemia Protocol Protocol Dextrose 1,000 mls @ 0 mls/hr 04/05/19 07:53 Dextrose 5% In Water 1000 Ml IV .Q0M PRN Hypoglycemia Protocol Protocol Per Protocol Insulin Human Lispro 0 units 04/05/19 11:30 04/07/19 09:42 Humalog Low SC Not Given ACHS [facility] Protocol Pantoprazole Sodium 40 mg 04/06/19 10:00 04/07/19 09:52 Protonix Inj IVP 40 mg DAILY EDNA Administration - Patient Studies Lab Studies: Lab Studies 04/07/19 04/07/19 04/07/19 Range/Units 11:40 11:37 07:24 WBC (4.5-11.0) 10^3/uL RBC (3.5-6.1) 10^6/uL Hgb 9.2 L (14.0-18.0) g/dL Hct 28.8 L (42.0-52.0) % MCV (80.0-105.0) fl MCH (25.0-35.0) pg MCHC (31.0-37.0) g/dl RDW (11.5-14.5) % Plt Count (120.0-450.0) 10^3/uL MPV (7.0-11.0) fl Sodium (132-148) mmol/L Potassium (3.6-5.0) mmol/L Chloride (98-107) mmol/L Carbon Dioxide (21-33) mmol/L Anion Gap (10-20) BUN (7-21) mg/dL Creatinine (0.8-1.5) mg/dl Est GFR ( Amer) Est GFR (Non-Af Amer) POC Glucose (mg/dL) 138 H (65-110) mg/dL Random Glucose (70-110) mg/dL Calcium (8.4-10.5) mg/dL Total Bilirubin 0.8 (0.2-1.3) mg/dL Direct Bilirubin 0.2 (0.0-0.4) mg/dL AST 24 (17-59) U/L ALT 20 (7-56) U/L Alkaline Phosphatase 67 (38-126) U/L Total Protein 6.2 (5.8-8.3) g/dL Albumin 3.4 (3.0-4.8) g/dL Globulin 2.8 gm/dL Albumin/Globulin Ratio 1.2 (1.1-1.8) Blood Type Antibody Screen Crossmatch BBK History Checked 04/07/19 04/07/19 04/06/19 Range/Units 06:15 06:15 23:45 WBC 7.1 (4.5-11.0) 10^3/uL RBC 3.50 (3.5-6.1) 10^6/uL Hgb 9.1 L 8.9 L (14.0-18.0) g/dL Hct 28.7 L 27.8 L (42.0-52.0) % MCV 82.0 (80.0-105.0) fl MCH 26.0 (25.0-35.0) pg MCHC 31.7 (31.0-37.0) g/dl RDW 15.1 H (11.5-14.5) % Plt Count 192 (120.0-450.0) 10^3/uL MPV 9.0 (7.0-11.0) fl Sodium 134 (132-148) mmol/L Potassium 4.5 (3.6-5.0) mmol/L Chloride 104 (98-107) mmol/L Carbon Dioxide 23 (21-33) mmol/L Anion Gap 12 (10-20) BUN 17 (7-21) mg/dL Creatinine 1.5 (0.8-1.5) mg/dl Est GFR ( Amer) 54 Est GFR (Non-Af Amer) 44 POC Glucose (mg/dL) (65-110) mg/dL Random Glucose 98 (70-110) mg/dL Calcium 8.6 (8.4-10.5) mg/dL Total Bilirubin (0.2-1.3) mg/dL Direct Bilirubin (0.0-0.4) mg/dL AST (17-59) U/L ALT (7-56) U/L Alkaline Phosphatase (38-126) U/L Total Protein (5.8-8.3) g/dL Albumin (3.0-4.8) g/dL Globulin gm/dL Albumin/Globulin Ratio (1.1-1.8) Blood Type Antibody Screen Crossmatch BBK History Checked 04/06/19 04/06/19 04/06/19 Range/Units 22:05 17:36 17:16 WBC (4.5-11.0) 10^3/uL RBC (3.5-6.1) 10^6/uL Hgb 9.0 L (14.0-18.0) g/dL Hct 27.7 L (42.0-52.0) % MCV (80.0-105.0) fl MCH (25.0-35.0) pg MCHC (31.0-37.0) g/dl RDW (11.5-14.5) % Plt Count (120.0-450.0) 10^3/uL MPV (7.0-11.0) fl Sodium (132-148) mmol/L Potassium (3.6-5.0) mmol/L Chloride (98-107) mmol/L Carbon Dioxide (21-33) mmol/L Anion Gap (10-20) BUN (7-21) mg/dL Creatinine (0.8-1.5) mg/dl Est GFR ( Amer) Est GFR (Non-Af Amer) POC Glucose (mg/dL) 115 H 98 (65-110) mg/dL Random Glucose (70-110) mg/dL Calcium (8.4-10.5) mg/dL Total Bilirubin (0.2-1.3) mg/dL Direct Bilirubin (0.0-0.4) mg/dL AST (17-59) U/L ALT (7-56) U/L Alkaline Phosphatase (38-126) U/L Total Protein (5.8-8.3) g/dL Albumin (3.0-4.8) g/dL Globulin gm/dL Albumin/Globulin Ratio (1.1-1.8) Blood Type Antibody Screen Crossmatch BBK History Checked 04/06/19 04/06/19 04/05/19 Range/Units 13:14 09:08 21:27 WBC (4.5-11.0) 10^3/uL RBC (3.5-6.1) 10^6/uL Hgb (14.0-18.0) g/dL Hct (42.0-52.0) % MCV (80.0-105.0) fl MCH (25.0-35.0) pg MCHC (31.0-37.0) g/dl RDW (11.5-14.5) % Plt Count (120.0-450.0) 10^3/uL MPV (7.0-11.0) fl Sodium (132-148) mmol/L Potassium (3.6-5.0) mmol/L Chloride (98-107) mmol/L Carbon Dioxide (21-33) mmol/L Anion Gap (10-20) BUN (7-21) mg/dL Creatinine (0.8-1.5) mg/dl Est GFR ( Amer) Est GFR (Non-Af Amer) POC Glucose (mg/dL) 173 H 107 117 H (65-110) mg/dL Random Glucose (70-110) mg/dL Calcium (8.4-10.5) mg/dL Total Bilirubin (0.2-1.3) mg/dL Direct Bilirubin (0.0-0.4) mg/dL AST (17-59) U/L ALT (7-56) U/L Alkaline Phosphatase (38-126) U/L Total Protein (5.8-8.3) g/dL Albumin (3.0-4.8) g/dL Globulin gm/dL Albumin/Globulin Ratio (1.1-1.8) Blood Type Antibody Screen Crossmatch BBK History Checked 04/05/19 04/05/19 Range/Units 16:31 05:01 WBC (4.5-11.0) 10^3/uL RBC (3.5-6.1) 10^6/uL Hgb (14.0-18.0) g/dL Hct (42.0-52.0) % MCV (80.0-105.0) fl MCH (25.0-35.0) pg MCHC (31.0-37.0) g/dl RDW (11.5-14.5) % Plt Count (120.0-450.0) 10^3/uL MPV (7.0-11.0) fl Sodium (132-148) mmol/L Potassium (3.6-5.0) mmol/L Chloride (98-107) mmol/L Carbon Dioxide (21-33) mmol/L Anion Gap (10-20) BUN (7-21) mg/dL Creatinine (0.8-1.5) mg/dl Est GFR ( Amer) Est GFR (Non-Af Amer) POC Glucose (mg/dL) 128 H (65-110) mg/dL Random Glucose (70-110) mg/dL Calcium (8.4-10.5) mg/dL Total Bilirubin (0.2-1.3) mg/dL Direct Bilirubin (0.0-0.4) mg/dL AST (17-59) U/L ALT (7-56) U/L Alkaline Phosphatase (38-126) U/L Total Protein (5.8-8.3) g/dL Albumin (3.0-4.8) g/dL Globulin gm/dL Albumin/Globulin Ratio (1.1-1.8) Blood Type B POSITIVE Antibody Screen Negative Crossmatch See Detail BBK History Checked No verified bt Laboratory Results - last 24 hr 04/05/19 04/05/19 04/05/19 05:01 16:31 21:27 WBC RBC Hgb Hct MCV MCH MCHC RDW Plt Count MPV Sodium Potassium Chloride Carbon Dioxide Anion Gap BUN Creatinine Est GFR ( Amer) Est GFR (Non-Af Amer) POC Glucose (mg/dL) 128 H 117 H Random Glucose Calcium Total Bilirubin Direct Bilirubin AST ALT Alkaline Phosphatase Total Protein Albumin Globulin Albumin/Globulin Ratio Blood Type B POSITIVE Antibody Screen Negative Crossmatch See Detail BBK History Checked No verified bt 04/06/19 04/06/19 04/06/19 09:08 13:14 17:16 WBC RBC Hgb Hct MCV MCH MCHC RDW Plt Count MPV Sodium Potassium Chloride Carbon Dioxide Anion Gap BUN Creatinine Est GFR ( Amer) Est GFR (Non-Af Amer) POC Glucose (mg/dL) 107 173 H 98 Random Glucose Calcium Total Bilirubin Direct Bilirubin AST ALT Alkaline Phosphatase Total Protein Albumin Globulin Albumin/Globulin Ratio Blood Type Antibody Screen Crossmatch BBK History Checked 04/06/19 04/06/19 04/06/19 17:36 22:05 23:45 WBC RBC Hgb 9.0 L 8.9 L Hct 27.7 L 27.8 L MCV MCH MCHC RDW Plt Count MPV Sodium Potassium Chloride Carbon Dioxide Anion Gap BUN Creatinine Est GFR ( Amer) Est GFR (Non-Af Amer) POC Glucose (mg/dL) 115 H Random Glucose Calcium Total Bilirubin Direct Bilirubin AST ALT Alkaline Phosphatase Total Protein Albumin Globulin Albumin/Globulin Ratio Blood Type Antibody Screen Crossmatch BBK History Checked 04/07/19 04/07/19 04/07/19 06:15 06:15 07:24 WBC 7.1 RBC 3.50 Hgb 9.1 L Hct 28.7 L MCV 82.0 MCH 26.0 MCHC 31.7 RDW 15.1 H Plt Count 192 MPV 9.0 Sodium 134 Potassium 4.5 Chloride 104 Carbon Dioxide 23 Anion Gap 12 BUN 17 Creatinine 1.5 Est GFR ( Amer) 54 Est GFR (Non-Af Amer) 44 POC Glucose (mg/dL) Random Glucose 98 Calcium 8.6 Total Bilirubin 0.8 Direct Bilirubin 0.2 AST 24 ALT 20 Alkaline Phosphatase 67 Total Protein 6.2 Albumin 3.4 Globulin 2.8 Albumin/Globulin Ratio 1.2 Blood Type Antibody Screen Crossmatch BBK History Checked 04/07/19 04/07/19 11:37 11:40 WBC RBC Hgb 9.2 L Hct 28.8 L MCV MCH MCHC RDW Plt Count MPV Sodium Potassium Chloride Carbon Dioxide Anion Gap BUN Creatinine Est GFR ( Amer) Est GFR (Non-Af Amer) POC Glucose (mg/dL) 138 H Random Glucose Calcium Total Bilirubin Direct Bilirubin AST ALT Alkaline Phosphatase Total Protein Albumin Globulin Albumin/Globulin Ratio Blood Type Antibody Screen Crossmatch BBK History Checked Critical Care Progress Note - Nutrition Nutrition: Nutrition Category Date Time Status Heart Healthy Diet [DIET] Diets 04/07/19 Dinner Active Addendum Addendum: 04/07/19 13:07 ICU Attending Addendum Patient seen and examined. Case reviewed on round with housestaff. Agree with resident note above with the following additions/exceptions 88 M with past medical history of colonic polyp, GI bleed, [place], CAD s/p stent placement, hypertension, admitted with active GI bleed patient has hx oif GI bleeds while in [place] has had polys and polypectomy in the past no bleeding over night and no GI plan for scope hb is stable since last night cont to monitor H/H transfuse as needed hemodyancamically stable and ok to transfer out of ICU Rest of care as above in housestaff note Jacklyn Tucker MD Pulmonary Critical Care Attending
--- NOTE | 2019-04-07 08:26 | CP.PCM.PN ---
Subjective - Date & Time of Evaluation Date of Evaluation: 04/07/19 Time of Evaluation: 07:15 - Subjective Subjective: General Surgery Pt seen and examined. No acute events overnight. No bloody BMs since yesterday. No new complaints. Objective - Vital Signs/Intake and Output Vital Signs (last 24 hours): Temp Pulse Resp BP Pulse Ox 98.0 F 79 13 103/55 L 99 04/07/19 06:00 04/07/19 06:00 04/07/19 02:50 04/07/19 02:00 04/07/19 02:50 Intake and Output: 04/07/19 04/07/19 06:59 18:59 Intake Total 400 Output Total 800 Balance -400 - Medications Medications: Current Medications Atorvastatin Calcium (Lipitor) 40 mg PO HS [facility] Last Admin: 04/06/19 21:51 Dose: 40 mg Dextrose (Dextrose 50% Inj) 0 ml IV STAT PRN; Protocol PRN Reason: Hypoglycemia Protocol Dextrose (Dextrose 5% In Water 1000 Ml) 1,000 mls @ 0 mls/hr IV .Q0M PRN; Protocol PRN Reason: Hypoglycemia Protocol Sodium Chloride (Sodium Chloride 0.9%) 1,000 mls @ 100 mls/hr IV .Q10H EDNA Last Admin: 04/06/19 15:27 Dose: Not Given Insulin Human Lispro (Humalog Low) 0 units SC ACHS EDNA; Protocol Last Admin: 04/06/19 23:44 Dose: Not Given Pantoprazole Sodium (Protonix Inj) 40 mg IVP DAILY EDNA Last Admin: 04/06/19 09:51 Dose: 40 mg - Labs Labs: 04/07/19 06:15 04/07/19 06:15 PT 10.8 SECONDS (9.4-12.5) 04/05/19 05:01 INR 0.96 04/05/19 05:01 APTT 36.6 Seconds (26.9-38.3) 04/05/19 05:01 - Constitutional Appears: Non-toxic, In Acute Distress - Head Exam Head Exam: ATRAUMATIC, NORMOCEPHALIC - Eye Exam Eye Exam: EOMI. absent: Scleral icterus - Respiratory Exam Respiratory Exam: NORMAL BREATHING PATTERN. absent: Respiratory Distress - GI/Abdominal Exam GI & Abdominal Exam: Soft. absent: Distended, Firm, Guarding, Rigid, Tenderness, Rebound - Rectal Exam Rectal Exam: Deferred - Extremities Exam Extremities Exam: Normal Capillary Refill. absent: Tenderness - Neurological Exam Neurological Exam: Alert, Awake, Oriented x3 - Skin Skin Exam: Dry, Warm Assessment and Plan - Assessment and Plan (Free Text) Assessment: 88 M w/ Lower GI bleed Plan: Hgb stable at 9.1, can switch to labs 1x day unless further bleeding occurs No plan for surgical intervention at this time. F/U GI plans F/U with Cardiology about possibility of coming off his plavix, stents placed 5 and 10 years prior. D/W Dr. Gerber Isaacs PGY4
[2019-04-07 08:55] LABS: ALB/GLOB RATIO 1.2 (1.1-1.8); ALBUMIN 3.4 g/dL (3.0-4.8); BILIRUBIN,DIRECT 0.2 mg/dL (0.0-0.4)
[2019-04-07] MEDS: Insulin Lispro (humaLOG) LOW Coverage SC SCH ×3 (09:42→17:07)
--- NOTE | 2019-04-07 10:56 | CP.PCM.PN ---
<Jesus Garcia - Last Filed: 04/07/19 13:54> Subjective - Date & Time of Evaluation Date of Evaluation: 04/07/19 Time of Evaluation: 10:00 - Subjective Subjective: Jesus Garcia-Internal Medicine Resident- Progress Note on Behalf of Dr. Luu Subjective: Patient seen and examined at bedside. No acute events ovenright. Denies new melena/bright red blood per rectum. Denies BM. Tolerating clear liquid diet. Denies associated abdominal pain, nausea, vomiting, constipation. Further denies fever, chills, dizziness, headache, chest pain, SOB, and urinary symptoms. 12 point ROS negative except as indicated in the HPI Physical Examination: - Constitutional Appears: No Acute Distress - Head Exam Head Exam: ATRAUMATIC, NORMAL INSPECTION, NORMOCEPHALIC - Eye Exam Eye Exam: EOMI, Normal appearance - ENT Exam ENT Exam: Mucous Membranes Moist - Respiratory Exam Respiratory Exam: CTA bilaterally, absent: Accessory Muscle Use, Chest Wall Tenderness, Rales, Rhonchi, Wheezes, Respiratory Distress - Cardiovascular Exam Cardiovascular Exam: RRR, +S1, +S2 - GI/Abdominal Exam GI & Abdominal Exam: Normal Bowel Sounds, Soft, Tenderness to palpation, absent: Distended, Firm, Guarding, Organomegaly, Rebound, Rigid - Extremities Exam Extremities exam: Positive for: normal inspection, Negative for: calf tenderness - Back Exam Back exam: No CVA tenderness bilaterally - Neurological Exam Neurological exam: Alert, Oriented x3 - Psychiatric Exam Psychiatric exam: Normal Affect, Normal Mood - Skin Skin Exam: Dry, Intact, Normal Color, Warm Studies Reviewed: - nuclear bleeding scan ordered- Abnormal accumulation is seen near the midline of the mid abdomen with peristalsis distally. The bleed is most likely in the descending or sigmoid colon - Previous colonoscopy 03/2019- scattered pandiverticulosis, 7mm ascending colon polyp s/p snare polypectomy, 1.5cm pedunculated polyp at 20cm s/p snare polypectomy, 5mm polyp at 20 cm s/p snare polypectomy, otherwise normal exam to cecum. No bleeding noted. Assessment and Plan: Patient is a 88 year old male with a past medical history of colonic polyp, GI bleed, CO, CAD s/p stent placement, hypertension, hyperlipidemia, and diabetes who was admitted for evaluation and treatment of cynthia blood in the stool. GI hemorrhage- delayed post polypectomy bleed vs. diverticular bleed Normocytic Anemia- stable s/p 3 units pRBCs, 1 unit FFP, 1 unit platelets Suspected MARGARET on CKD- need baseline creatinine/BUN Hx of CO Hx of CAD s/p stent placement Hx of hypertension Hx of hyperlipidemia Hx of diabetes - advance diet as tolerated, discontinue IVF - continue protonix 40mg IV daily - follow up on cardiology recs for recommendations on antiplatelet therapy - no acute GI intervention at this time Patient seen, case discussed with, and plan approved by attending physician, Dr. Luu. Objective - Vital Signs/Intake and Output Vital Signs (last 24 hours): Temp Pulse Resp BP Pulse Ox 98.0 F 79 13 103/55 L 99 04/07/19 06:00 04/07/19 06:00 04/07/19 02:50 04/07/19 02:00 04/07/19 02:50 Intake and Output: 04/07/19 04/07/19 06:59 18:59 Intake Total 400 Output Total 800 Balance -400 - Medications Medications: Current Medications Atorvastatin Calcium (Lipitor) 40 mg PO HS [facility] Last Admin: 04/06/19 21:51 Dose: 40 mg Dextrose (Dextrose 50% Inj) 0 ml IV STAT PRN; Protocol PRN Reason: Hypoglycemia Protocol Dextrose (Dextrose 5% In Water 1000 Ml) 1,000 mls @ 0 mls/hr IV .Q0M PRN; Protocol PRN Reason: Hypoglycemia Protocol Sodium Chloride (Sodium Chloride 0.9%) 1,000 mls @ 100 mls/hr IV .Q10H EDNA Last Admin: 04/06/19 15:27 Dose: Not Given Insulin Human Lispro (Humalog Low) 0 units SC ACHS EDNA; Protocol Last Admin: 04/07/19 09:42 Dose: Not Given Pantoprazole Sodium (Protonix Inj) 40 mg IVP DAILY [facility] Last Admin: 04/07/19 09:52 Dose: 40 mg - Labs Labs: 04/07/19 06:15 04/07/19 06:15 PT 10.8 SECONDS (9.4-12.5) 04/05/19 05:01 INR 0.96 04/05/19 05:01 APTT 36.6 Seconds (26.9-38.3) 04/05/19 05:01 <Jus,Kovil V - Last Filed: 04/07/19 19:12> Objective - Vital Signs/Intake and Output Vital Signs (last 24 hours): Temp Pulse Resp BP Pulse Ox 97.5 F L 63 30 H 130/74 100 04/07/19 17:00 04/07/19 17:01 04/07/19 17:01 04/07/19 17:01 04/07/19 17:01 - Labs Labs: 04/07/19 11:40 04/07/19 06:15 PT 10.8 SECONDS (9.4-12.5) 04/05/19 05:01 INR 0.96 04/05/19 05:01 APTT 36.6 Seconds (26.9-38.3) 04/05/19 05:01 Attending/Attestation - Attestation I have personally seen and examined this patient.: Yes I have fully participated in the care of the patient.: Yes I have reviewed all pertinent clinical information, including history, physical exam and plan: Yes Notes (Text): This patient was seen and evaluated the earlier. This is an addendum to the GI progress note dictated by the resident. Patient did not have no further episodes of bleeding. Hemoglobin stable. Tolerating diet. History of status post colonoscopy and polypectomy. History of multiple diverticulosis. The present presentation appears to be diverticular bleed from the left side of the colon. Differential diagnosis should include post polypectomy but less likely. Patient was on aspirin and Plavix. Did receive blood transfusion and also platelet transfusion. It is reasonable to hold off Plavix in view of this recurrent bleeding. Patient will be able to take a baby aspirin after 1 more day if the if there is no further episodes of bleeding. I have discussed this with the patient and also patient's family who were at bedside. Patient was advised to follow-up with the primary physician and also GI follow-up as per the patient and family. Patient was recommended GI follow-up as outpatient 04/07/19 19:10
[2019-04-07 11:50] LABS: HEMOGLOBIN 9.2 g/dL (14.0-18.0)
--- NOTE | 2019-04-07 15:21 | CP.PCM.DIS ---
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 Core Measures Referral Routine Comment: lower gib Physician Instructions: Reason For Exam: assess Transition In Care/Readmission Reduction Routine Comment: lower gib Physician Instructions: Reason For Exam: assess 04/05/19 14:42 Physician Consult Routine Comment: Consulting Provider: Edil Castorena Consulting Physician: Edil Castorena Reason for Consult: GI bleed 04/05/19 16:30 Physician Consult Routine Comment: Consulting Provider: Slim Mayes Consulting Physician: Slim Mayes Reason for Consult: LGIB Time Spent in preparation of Discharge (in minutes): 45 Diagnosis - Discharge Diagnosis (1) DM2 (diabetes mellitus, type 2) Status: Chronic (2) HLD (hyperlipidemia) Status: Chronic (3) CAD (coronary artery disease) Status: Chronic (4) Lower gastrointestinal hemorrhage Status: Resolved Hospital Course - Lab Results Lab Results: Most Recent Lab Values WBC 7.1 10^3/uL (4.5-11.0) 04/07/19 06:15 RBC 3.50 10^6/uL (3.5-6.1) 04/07/19 06:15 Hgb 9.2 g/dL (14.0-18.0) L 04/07/19 11:40 Hct 28.8 % (42.0-52.0) L 04/07/19 11:40 MCV 82.0 fl (80.0-105.0) 04/07/19 06:15 MCH 26.0 pg (25.0-35.0) 04/07/19 06:15 MCHC 31.7 g/dl (31.0-37.0) 04/07/19 06:15 RDW 15.1 % (11.5-14.5) H 04/07/19 06:15 Plt Count 192 10^3/uL (120.0-450.0) 04/07/19 06:15 MPV 9.0 fl (7.0-11.0) 04/07/19 06:15 Neut % (Auto) 62.8 % (50.0-68.0) 04/05/19 05:01 Lymph % (Auto) 25.1 % (22.0-35.0) 04/05/19 05:01 Parker % (Auto) 8.1 % (1.0-6.0) H 04/05/19 05:01 Eos % (Auto) 3.6 % (1.5-5.0) 04/05/19 05:01 Baso % (Auto) 0.4 % (0.0-3.0) 04/05/19 05:01 Lymph # (Auto) 2.5 (1.2-3.4) 04/05/19 05:01 Parker # (Auto) 0.8 (0.1-0.6) H 04/05/19 05:01 Eos # (Auto) 0.4 (0.0-0.7) 04/05/19 05:01 Baso # (Auto) 0.04 K/mm3 (0.0-2.0) 04/05/19 05:01 Absolute Neuts (auto) 6.27 (1.4-6.5) 04/05/19 05:01 PT 10.8 SECONDS (9.4-12.5) 04/05/19 05:01 INR 0.96 04/05/19 05:01 APTT 36.6 Seconds (26.9-38.3) 04/05/19 05:01 Sodium 134 mmol/L (132-148) 04/07/19 06:15 Potassium 4.5 mmol/L (3.6-5.0) 04/07/19 06:15 Chloride 104 mmol/L (98-107) 04/07/19 06:15 Carbon Dioxide 23 mmol/L (21-33) 04/07/19 06:15 Anion Gap 12 (10-20) 04/07/19 06:15 BUN 17 mg/dL (7-21) 04/07/19 06:15 Creatinine 1.5 mg/dl (0.8-1.5) 04/07/19 06:15 Est GFR ( Amer) 54 04/07/19 06:15 Est GFR (Non-Af Amer) 44 04/07/19 06:15 POC Glucose (mg/dL) 138 mg/dL (65-110) H 04/07/19 11:37 Random Glucose 98 mg/dL (70-110) 04/07/19 06:15 Serum Osmolality 267 mosm/kg (272-300) L 04/05/19 11:35 Calcium 8.6 mg/dL (8.4-10.5) 04/07/19 06:15 Total Bilirubin 0.8 mg/dL (0.2-1.3) 04/07/19 07:24 Direct Bilirubin 0.2 mg/dL (0.0-0.4) 04/07/19 07:24 AST 24 U/L (17-59) 04/07/19 07:24 ALT 20 U/L (7-56) 04/07/19 07:24 Alkaline Phosphatase 67 U/L (38-126) 04/07/19 07:24 Lactate Dehydrogenase 323 U/L (333-699) L 04/05/19 05:01 Total Creatine Kinase 134 U/L (35-230) 04/05/19 05:01 Troponin I < 0.01 ng/mL 04/05/19 20:30 Total Protein 6.2 g/dL (5.8-8.3) 04/07/19 07:24 Albumin 3.4 g/dL (3.0-4.8) 04/07/19 07:24 Globulin 2.8 gm/dL 04/07/19 07:24 Albumin/Globulin Ratio 1.2 (1.1-1.8) 04/07/19 07:24 Amylase 137 U/L (35-125) H 04/05/19 05:01 Lipase 408 U/L (23-300) H 04/05/19 05:01 TSH 3rd Generation 1.52 mIU/mL (0.46-4.68) 04/05/19 11:35 Urine Color Yellow (YELLOW) 04/06/19 05:55 Urine Appearance Clear (CLEAR) 04/06/19 05:55 Urine pH 5.0 (4.7-8.0) 04/06/19 05:55 Ur Specific [place] 1.010 (1.005-1.035) 04/06/19 05:55 Urine Protein Negative mg/dL (<30 mg/dL) 04/06/19 05:55 Urine Glucose (UA) Negative mg/dL (NEGATIVE) 04/06/19 05:55 Urine Ketones Negative mg/dL (NEGATIVE) 04/06/19 05:55 Urine Blood Negative (NEGATIVE) 04/06/19 05:55 Urine Nitrate Negative (NEGATIVE) 04/06/19 05:55 Urine Bilirubin Negative (NEGATIVE) 04/06/19 05:55 Urine Urobilinogen 0.2 E.U./dL (<1 E.U./dL) 04/06/19 05:55 Ur Leukocyte Esterase Negative Santos/uL (NEGATIVE) 04/06/19 05:55 Blood Type B POSITIVE 04/05/19 05:01 Blood Type Confirm B POSITIVE 04/05/19 05:30 Antibody Screen Negative 04/05/19 05:01 Crossmatch See Detail 04/05/19 05:01 BBK History Checked No verified bt 04/05/19 05:01 - Hospital Course Hospital Course: 88 year old male with past medical history of colon polyps, CAD s/p stents, HTN, Type 2 DM, hyperlipidemia, CKD presented to the ED with complaint of a single episode of bloody diarrhea. Patient states that he experienced a similar episode 3 weeks prior while visiting family in [place] and he was admitted to the hospital. Prior colonoscopy revealed multiple polyps, diverticulosis and polypectomies were done. He was told to hold Aspirin and Plavix for 10 days and did not experience any more bleeding until the day of presentation. GI bleeding scan revealed abnormal accumulation near the midline of the mid abdomen with peristalsis distally and bleed most likely in the descending or sigmoid colon. Troponins were negative x3 and patient was hyponatremic and anemic. The patient had several more episodes of bloody diarrhea and required transfusion of a total of 3 units RBCs, 1 unit FFP, 1 unit Plts. GI was consulted opted for conservative management as patient had no more hematochezia and was asymptomatic. Surgery recommended no interventation at this time. Cardiology recommended holding aspirin and plavix during admission. An Echo was ordered to evaluate LV function and showed EF 57.6% with apical hypokinesis and mild LVH. On discharge, patient was told to start ASA the next day after discharge and was told to stop Plavix indefinitely. Patient told hold blood pressure medications at this time as patient was normotensive during admission. Patient was told to follow up with his PCP within 3-5 days. Discharge Exam - Head Exam Head Exam: ATRAUMATIC, NORMAL INSPECTION, NORMOCEPHALIC - Eye Exam Eye Exam: EOMI, Normal appearance - ENT Exam ENT Exam: Mucous Membranes Moist - Respiratory Exam Respiratory Exam: Clear to PA & Lateral, NORMAL BREATHING PATTERN, UNREMARKABLE - Cardiovascular Exam Cardiovascular Exam: RRR, +S1, +S2. absent: Gallop, Rubs, Systolic Murmur - GI/Abdominal Exam GI & Abdominal Exam: Normal Bowel Sounds, Soft, Unremarkable. absent: Tenderness - Extremities Exam Extremities exam: normal inspection - Neurological Exam Neurological exam: Alert, CN II-XII Intact, Oriented x3 - Psychiatric Exam Psychiatric exam: Normal Affect, Normal Mood - Skin Skin Exam: Dry, Intact, Normal Color, Warm Discharge Plan - Discharge Medications Prescriptions: RX: Aspirin [Ecotrin] 81 mg PO DAILY #14 tabec RX: Atorvastatin [Lipitor] 40 mg PO HS #14 tab Docusate Sodium [Colace] 100 mg PO DAILY #14 capsule RX: Metformin HCl [Glucophage] 500 mg PO BID #28 tablet - Follow Up Plan Condition: FAIR Disposition: HOME/ ROUTINE Instructions: Type 2 Diabetes, Diverticulitis (DC), Gastrointestinal Bleeding (DC), How to Keep Track of Your Blood Sugar Additional Instructions: Follow up with primary care doctor within 1 week. Stop taking Plavix. Stop taking Lisinopril and Imdur until next visit with your primary care doctor. Start Aspirin on 04/08/19. Please return to hospital for any episodes of significant bowel movements. 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 Core Measures Referral Routine Comment: lower gib Physician Instructions: Reason For Exam: assess Transition In Care/Readmission Reduction Routine Comment: lower gib Physician Instructions: Reason For Exam: assess 04/05/19 14:42 Physician Consult Routine Comment: Consulting Provider: Edil Castorena Consulting Physician: Edil Castorena Reason for Consult: GI bleed 04/05/19 16:30 Physician Consult Routine Comment: Consulting Provider: Slim Mayes Consulting Physician: Slim Mayes Reason for Consult: LGIB Hospital Course - Lab Results Lab Results: Most Recent Lab Values WBC 7.1 10^3/uL (4.5-11.0) 04/07/19 06:15 RBC 3.50 10^6/uL (3.5-6.1) 04/07/19 06:15 Hgb 9.2 g/dL (14.0-18.0) L 04/07/19 11:40 Hct 28.8 % (42.0-52.0) L 04/07/19 11:40 MCV 82.0 fl (80.0-105.0) 04/07/19 06:15 MCH 26.0 pg (25.0-35.0) 04/07/19 06:15 MCHC 31.7 g/dl (31.0-37.0) 04/07/19 06:15 RDW 15.1 % (11.5-14.5) H 04/07/19 06:15 Plt Count 192 10^3/uL (120.0-450.0) 04/07/19 06:15 MPV 9.0 fl (7.0-11.0) 04/07/19 06:15 Neut % (Auto) 62.8 % (50.0-68.0) 04/05/19 05:01 Lymph % (Auto) 25.1 % (22.0-35.0) 04/05/19 05:01 Parker % (Auto) 8.1 % (1.0-6.0) H 04/05/19 05:01 Eos % (Auto) 3.6 % (1.5-5.0) 04/05/19 05:01 Baso % (Auto) 0.4 % (0.0-3.0) 04/05/19 05:01 Lymph # (Auto) 2.5 (1.2-3.4) 04/05/19 05:01 Parker # (Auto) 0.8 (0.1-0.6) H 04/05/19 05:01 Eos # (Auto) 0.4 (0.0-0.7) 04/05/19 05:01 Baso # (Auto) 0.04 K/mm3 (0.0-2.0) 04/05/19 05:01 Absolute Neuts (auto) 6.27 (1.4-6.5) 04/05/19 05:01 PT 10.8 SECONDS (9.4-12.5) 04/05/19 05:01 INR 0.96 04/05/19 05:01 APTT 36.6 Seconds (26.9-38.3) 04/05/19 05:01 Sodium 134 mmol/L (132-148) 04/07/19 06:15 Potassium 4.5 mmol/L (3.6-5.0) 04/07/19 06:15 Chloride 104 mmol/L (98-107) 04/07/19 06:15 Carbon Dioxide 23 mmol/L (21-33) 04/07/19 06:15 Anion Gap 12 (10-20) 04/07/19 06:15 BUN 17 mg/dL (7-21) 04/07/19 06:15 Creatinine 1.5 mg/dl (0.8-1.5) 04/07/19 06:15 Est GFR ( Amer) 54 04/07/19 06:15 Est GFR (Non-Af Amer) 44 04/07/19 06:15 POC Glucose (mg/dL) 138 mg/dL (65-110) H 04/07/19 11:37 Random Glucose 98 mg/dL (70-110) 04/07/19 06:15 Serum Osmolality 267 mosm/kg (272-300) L 04/05/19 11:35 Calcium 8.6 mg/dL (8.4-10.5) 04/07/19 06:15 Total Bilirubin 0.8 mg/dL (0.2-1.3) 04/07/19 07:24 Direct Bilirubin 0.2 mg/dL (0.0-0.4) 04/07/19 07:24 AST 24 U/L (17-59) 04/07/19 07:24 ALT 20 U/L (7-56) 04/07/19 07:24 Alkaline Phosphatase 67 U/L (38-126) 04/07/19 07:24 Lactate Dehydrogenase 323 U/L (333-699) L 04/05/19 05:01 Total Creatine Kinase 134 U/L (35-230) 04/05/19 05:01 Troponin I < 0.01 ng/mL 04/05/19 20:30 Total Protein 6.2 g/dL (5.8-8.3) 04/07/19 07:24 Albumin 3.4 g/dL (3.0-4.8) 04/07/19 07:24 Globulin 2.8 gm/dL 04/07/19 07:24 Albumin/Globulin Ratio 1.2 (1.1-1.8) 04/07/19 07:24 Amylase 137 U/L (35-125) H 04/05/19 05:01 Lipase 408 U/L (23-300) H 04/05/19 05:01 TSH 3rd Generation 1.52 mIU/mL (0.46-4.68) 04/05/19 11:35 Urine Color Yellow (YELLOW) 04/06/19 05:55 Urine Appearance Clear (CLEAR) 04/06/19 05:55 Urine pH 5.0 (4.7-8.0) 04/06/19 05:55 Ur Specific [place] 1.010 (1.005-1.035) 04/06/19 05:55 Urine Protein Negative mg/dL (<30 mg/dL) 04/06/19 05:55 Urine Glucose (UA) Negative mg/dL (NEGATIVE) 04/06/19 05:55 Urine Ketones Negative mg/dL (NEGATIVE) 04/06/19 05:55 Urine Blood Negative (NEGATIVE) 04/06/19 05:55 Urine Nitrate Negative (NEGATIVE) 04/06/19 05:55 Urine Bilirubin Negative (NEGATIVE) 04/06/19 05:55 Urine Urobilinogen 0.2 E.U./dL (<1 E.U./dL) 04/06/19 05:55 Ur Leukocyte Esterase Negative Santos/uL (NEGATIVE) 04/06/19 05:55 Blood Type B POSITIVE 04/05/19 05:01 Blood Type Confirm B POSITIVE 04/05/19 05:30 Antibody Screen Negative 04/05/19 05:01 Crossmatch See Detail 04/05/19 05:01 BBK History Checked No verified bt 04/05/19 05:01 Attending/Attestation - Attestation I have personally seen and examined this patient.: Yes I have fully participated in the care of the patient.: Yes I have reviewed all pertinent clinical information, including history, physical exam and plan: Yes Notes (Text): 04/07/19 17:02 86 year old male with past medical history of CAD s/p stents on aspirin and plavix, hypertension, and diabetes who presented with complaint of hematochezia. He reports he had similar episode earlier this month and underwent colonoscopy which showed diverticulosis and multiple polyps. Bleeding scan was positive for possible bleed in sigmoid or descending colon. Patient received PRBC transfusion, platelets and FFP. Bleeding subsided and H/H was stable. Patient was seen by GI and cardiology who agreed with holding aspirin and plavix on presentation. However since bleeding has subsided have recommended to resume aspirin tomorrow. Hyponatremia has resolved. CKD is stable and improved. Patient is discharged home to follow up with [facility]. Hold plavix. Can resume aspirin tomorrow, hold if bleeding recurs. Follow up with GI and cardiology. Lisinopril and imdur held for now for low normal blood pressure. Follow up with pmd/cardiology when to resume. Monitor creatinine while on metformin. Hold if creatinine worsens. Fitz Weaver MD Hospitalist.
[2019-04-07 17:14] VITALS: BP 130/74; PULSE 63; RESP 30; O2SAT 100
[2019-04-07 17:15] VITALS: TEMP 97.5
--- NOTE | 2019-04-07 17:19 | PN ---
DATE: 04/07/2019 CARDIOLOGY FOLLOWUP SUBJECTIVE: The patient denies any more dark stools. No blood in his stool. PHYSICAL EXAMINATION: VITAL SIGNS: Blood pressure is 103/55, heart rate is in the 70s. NECK: Negative JVD. LUNGS: Without rales. HEART: S1, S2. EXTREMITIES: Without edema. LABORATORY DATA: Hemoglobin is stable at 9.2. Chemistries, glucose is 138. The echocardiogram reveals good LV function with segmental wall motion abnormalities consistent with his coronary disease. PLAN: Given these findings, the patient no longer has any evidence for GI bleed. We will restart his baby aspirin given his documented coronary disease. No Plavix. According to the patient, his last stent was more than 10 years ago. From a cardiac perspective, the patient's continued workup can be done as an outpatient. Reynaldo Levi MD
--- NOTE | 2019-04-12 12:06 | PQF ---
PROVIDER RESPONSE TEXT: Acute blood loss due to GI hemorrhage REVIEWER QUERY TEXT: Anemia Type due to acute blood loss Anemia is documented in the Medical Record. Please specify the cause (includes suspected or probable cause) Such as: -- Due to acute blood loss -- Due to chronic blood loss -- Due to iron deficiency -- Due to postoperative blood loss -- Due to chronic disease -- Other, please specify The patient's Clinical Indicators include: GI bleeding anemia due to acute blood loss Diverticulosis sp polypectomy CAD Coagulopathy due to anti platelet therapy (plavix and aspirin) Query created by: Anamaria Bird on 04/06/2019 11:30 AM Electronically signed by: 04/12/2019 12:04 PM [facility]
== END 2019-04-07 18:34 | disposition home or self-care (01) | DRG 378 ==
LOC: ED 04:28 → ERH 05:42 → 2RNO 08:10 → ICU 18:09 → 5RNO 04-07 18:09 → ICU 04-07 18:10
PROVIDERS: ADMIT Hospitalist; ATTEND Internal Medicine
PROC: 30233N1 Transfusion of Nonautologous Red Blood Cells into Peripheral Vein, Percutaneous Approach (ICD-10-PCS; principal; 2019-04-05)
PROC: 30233R1 Transfusion of Nonautologous Platelets into Peripheral Vein, Percutaneous Approach (ICD-10-PCS; 2019-04-05)
PROC: 30233K1 Transfusion of Nonautologous Frozen Plasma into Peripheral Vein, Percutaneous Approach (ICD-10-PCS; 2019-04-06)
DX: K57.91 Diverticulosis of intestine, part unspecified, without perforation or abscess with bleeding (principal); N17.9 Acute kidney failure, unspecified; E87.1 Hypo-osmolality and hyponatremia; D62 Acute posthemorrhagic anemia; I25.10 Atherosclerotic heart disease of native coronary artery without angina pectoris; I10 Essential (primary) hypertension; I12.9 Hypertensive chronic kidney disease with stage 1 through stage 4 chronic kidney disease, or unspecified chronic kidney disease; E11.22 Type 2 diabetes mellitus with diabetic chronic kidney disease; N18.3 Chronic kidney disease, stage 3 (moderate); E78.00 Pure hypercholesterolemia, unspecified; E78.5 Hyperlipidemia, unspecified; Z79.02 Long term (current) use of antithrombotics/antiplatelets; Z79.82 Long term (current) use of aspirin; Z95.5 Presence of coronary angioplasty implant and graft; I25.2 Old myocardial infarction; Z86.73 Personal history of transient ischemic attack (TIA), and cerebral infarction without residual deficits; Z79.84 Long term (current) use of oral hypoglycemic drugs; Z86.010 Personal history of colon polyps